=== PATIENT | male | born 1975 | race Caucasian/White ===

== ENCOUNTER 2018-02-25 21:04 | Inpatient (IN) | payer OTHER ==
[~2018-02-25] VITALS: Ht 182.9 cm; Wt 101.2 kg
[2018-02-25 21:09] VITALS: Ht 182.9 cm; Wt 101.2 kg
[2018-02-25 22:08] LABS: PLATELET COUNT 310 x10^3mcL (130-400); RED CELL DISTRIBUTION WIDTH 14.3 % (11.5-14.5)
[2018-02-25 22:14] LABS: CALCIUM 8.4 mg/dL (8.5-10.1); CARBON DIOXIDE 23.3 mmol/L (21-32); CHLORIDE SERUM 101 mmol/L (98-107); CREATININE SERUM 0.8 mg/dL (0.7-1.3); GFR1 > 60 mL/min; GLUCOSE SERUM 101 mg/dL (74-106); POTASSIUM SERUM 3.8 mmol/L (3.5-5.1); SODIUM SERUM 140 mmol/L (136-145)
[2018-02-25 22:19] LABS: ALBUMIN 4.1 g/dL (3.4-5.0); ALKALINE PHOSPHATASE 69 U/L (46-116); ALT/SGPT 25 U/L (16-63); AST/SGOT 20 U/L (15-37); BILIRUBIN TOTAL 0.3 mg/dL (0.20-1.00)
[2018-02-25 22:20] LABS: TOTAL PROTEIN, SERUM 8.5 g/dL (6.4-8.2)
[2018-02-25 23:11] LABS: AMPHETAMINE QUAL UR NONE DETECTED (See below)
[2018-02-26 15:05] LABS: MAGNESIUM 2.1 mg/dL (1.8-2.4); PHOSPHOROUS 2.8 mg/dL (2.5-4.9)
[2018-02-26 15:13] LABS: T3 TOTAL 0.92 ng/mL
[2018-02-26 15:31] LABS: FREE T4 0.85 ng/dL (0.76-1.46); FREE THYROXINE INDEX 2.3 ug/dL (1.4-4.5); T4(THYROXINE) 6.7 ug/dL (4.7-13.3)
[2018-02-26 16:07] VITALS: BP 187/121
[2018-02-26 18:54] VITALS: BP 172/112
[2018-02-26 20:51] VITALS: BP 152/94
[2018-02-27 06:04] VITALS: BP 148/94
[2018-02-27 07:20] LABS: BASOPHIL % 0.7 % (0-2); PLATELET COUNT 240 x10^3mcL (130-400); RED CELL DISTRIBUTION WIDTH 14.1 % (11.5-14.5)
[2018-02-27 07:35] LABS: CALCIUM 8.4 mg/dL (8.5-10.1); CARBON DIOXIDE 27.8 mmol/L (21-32); CHLORIDE SERUM 104 mmol/L (98-107); CREATININE SERUM 0.7 mg/dL (0.7-1.3); GFR1 > 60 mL/min; GLUCOSE SERUM 85 mg/dL (74-106); MAGNESIUM 2.1 mg/dL (1.8-2.4); PHOSPHOROUS 3.4 mg/dL (2.5-4.9); POTASSIUM SERUM 3.3 mmol/L (3.5-5.1); SODIUM SERUM 141 mmol/L (136-145)
[2018-02-27 09:38] VITALS: BP 148/93
[2018-02-27 13:49] VITALS: BP 157/94
[2018-02-27 21:23] VITALS: BP 123/81
[2018-02-28 05:10] VITALS: BP 126/86
[2018-02-28 07:42] LABS: BASOPHIL % 1.4 % (0-2); PLATELET COUNT 234 x10^3mcL (130-400); RED CELL DISTRIBUTION WIDTH 14.1 % (11.5-14.5)
[2018-02-28 07:52] LABS: CALCIUM 8.8 mg/dL (8.5-10.1); CARBON DIOXIDE 27.7 mmol/L (21-32); CHLORIDE SERUM 102 mmol/L (98-107); CREATININE SERUM 0.6 mg/dL (0.7-1.3); GFR1 > 60 mL/min; GLUCOSE SERUM 85 mg/dL (74-106); MAGNESIUM 2.1 mg/dL (1.8-2.4); PHOSPHOROUS 3.9 mg/dL (2.5-4.9); POTASSIUM SERUM 3.5 mmol/L (3.5-5.1); SODIUM SERUM 138 mmol/L (136-145)
[2018-02-28 09:13] VITALS: BP 130/86
[2018-02-28 13:48] VITALS: BP 128/89
[2018-02-28 17:22] VITALS: BP 126/84
[2018-02-28 20:51] VITALS: BP 135/91
[2018-03-01 05:27] VITALS: BP 106/77
[2018-03-01 05:56] LABS: BASOPHIL % 0.5 % (0-2); PLATELET COUNT 241 x10^3mcL (130-400); RED CELL DISTRIBUTION WIDTH 14.2 % (11.5-14.5)
[2018-03-01 06:27] LABS: CALCIUM 8.9 mg/dL (8.5-10.1); CARBON DIOXIDE 24.5 mmol/L (21-32); CHLORIDE SERUM 101 mmol/L (98-107); CREATININE SERUM 0.8 mg/dL (0.7-1.3); GFR1 > 60 mL/min; GLUCOSE SERUM 93 mg/dL (74-106); MAGNESIUM 2.2 mg/dL (1.8-2.4); POTASSIUM SERUM 3.6 mmol/L (3.5-5.1); SODIUM SERUM 137 mmol/L (136-145)
[2018-03-01 13:01] VITALS: BP 105/68
[2018-03-01 17:19] VITALS: BP 117/81
[2018-03-01 20:55] VITALS: BP 123/88
[2018-03-02 05:41] VITALS: BP 113/73
[2018-03-02 08:26] VITALS: BP 106/74
[2018-03-02 12:14] VITALS: BP 131/82
[2018-03-02 17:00] VITALS: BP 121/84
[2018-03-02 20:42] VITALS: BP 117/74
[2018-03-03 05:33] VITALS: BP 111/79
[2018-03-03 06:30] LABS: BASOPHIL % 1.3 % (0-2); PLATELET COUNT 241 x10^3mcL (130-400); RED CELL DISTRIBUTION WIDTH 13.8 % (11.5-14.5)
[2018-03-03 06:44] LABS: CALCIUM 8.6 mg/dL (8.5-10.1); CARBON DIOXIDE 30.3 mmol/L (21-32); CHLORIDE SERUM 105 mmol/L (98-107); CREATININE SERUM 0.8 mg/dL (0.7-1.3); GFR1 > 60 mL/min; GLUCOSE SERUM 85 mg/dL (74-106); MAGNESIUM 2.4 mg/dL (1.8-2.4); SODIUM SERUM 142 mmol/L (136-145)
[2018-03-03 08:55] VITALS: BP 110/70
[2018-03-03 13:44] VITALS: BP 110/70
[2018-03-03] MEDS ORDERED: HYDROXYZINE10 M1 PO (14:06)
== END 2018-03-03 14:33 | disposition home or self-care (01) | DRG 896 ==
LOC: ED 21:04 → DU 02-26 14:26
PROVIDERS: Emergency Medicine; Family Medicine; General Practice; Internal Medicine
DX: F10.221 Alcohol dependence with intoxication delirium (principal); G92 Toxic encephalopathy; T51.0X1A Toxic effect of ethanol, accidental (unintentional), initial encounter; E87.6 Hypokalemia; E83.51 Hypocalcemia; F10.232 Alcohol dependence with withdrawal with perceptual disturbance; F43.12 Post-traumatic stress disorder, chronic; E78.5 Hyperlipidemia, unspecified; Y90.8 Blood alcohol level of 240 mg/100 ml or more; Y92.9 Unspecified place or not applicable
CPT/HCPCS: 84439; G0480; J1885; J2060; J2270; J2405; Q0092

== ENCOUNTER 2018-04-14 01:38 | Emergency (ER) | payer MEDICAID ==
[~2018-04-14] VITALS: Ht 182.9 cm; Wt 101.2 kg
[~2018-04-14 01:38] MED LIST: HYDROXYZINE10 M1 PO
[2018-04-14 01:57] VITALS: Ht 182.9 cm; Wt 101.2 kg
[2018-04-14 03:36] LABS: BASOPHIL % 0.5 % (0-2); PLATELET COUNT 260 x10^3mcL (130-400); RED CELL DISTRIBUTION WIDTH 15.1 % (11.5-14.5)
[2018-04-14 03:59] LABS: CALCIUM 8.8 mg/dL (8.5-10.1); CARBON DIOXIDE 23.8 mmol/L (21-32); CHLORIDE SERUM 99 mmol/L (98-107); CREATININE SERUM 0.9 mg/dL (0.7-1.3); GFR1 > 60 mL/min; GLUCOSE SERUM 96 mg/dL (74-106); POTASSIUM SERUM 3.4 mmol/L (3.5-5.1); SODIUM SERUM 135 mmol/L (136-145)
[2018-04-14 04:04] LABS: ALBUMIN 3.6 g/dL (3.4-5.0); ALKALINE PHOSPHATASE 75 U/L (46-116); ALT/SGPT 148 U/L (16-63); AST/SGOT 105 U/L (15-37); BILIRUBIN TOTAL 1.23 mg/dL (0.20-1.00); LIPASE 142 IU/L (73-393); TOTAL PROTEIN, SERUM 7.5 g/dL (6.4-8.2)
[2018-04-14 05:31] VITALS: BP 105/55
== END 2018-04-14 05:19 | disposition home or self-care (01) ==
LOC: ED 01:38
PROVIDERS: Emergency Medicine
DX: K57.92 Diverticulitis of intestine, part unspecified, without perforation or abscess without bleeding (principal); F10.239 Alcohol dependence with withdrawal, unspecified
CPT/HCPCS: J2270; J2405; J2543

== ENCOUNTER 2018-11-07 23:00 | Inpatient (IN) | payer MEDICAID ==
[~2018-11-07] VITALS: Ht 182.9 cm; Wt 89.8 kg
--- NOTE | 2018-11-07 23:26 | NUR ---
PT BIB [facility] AND AMBULATED TO BED. PT AAOX4 WITH C/O LLQ ABD PAIN WITH PAINFUL/BURNING URINATION AND NAUSEA 'FOR AWHILE NOW'. PT ALSO STATED HE HAS A LOT OF EMOTIONAL PAIN DUE TO A DISAGREEMENT WITH HIS . PT STATES 'I TOOK ALL OF THE PILLS THEY GAVE ME'. PT WAS FOUND BY PD IN A HOTEL ROOM WITH A BELT AROUND HIS NECK. PT WAS PLACED ON A 5150 HOLD BY PD FOR SI. PT HAS A HX OF SI AND PTSD. PT IS CALM AND COOPERATIVE AT THIS TIME. PT PLACED IN ROOM CLOSE TO NURSING STATION WITH SAFETY MEASURES IN PLACE.
[2018-11-07 23:46] LABS: PLATELET COUNT 301 x10^3mcL (130-400); RED CELL DISTRIBUTION WIDTH 12.7 % (11.5-14.5)
[2018-11-07 23:53] LABS: BASOPHIL % 2.2 % (0-2)
[2018-11-07 23:57] LABS: CALCIUM 8.4 mg/dL (8.5-10.1); CARBON DIOXIDE 26.4 mmol/L (21-32); CHLORIDE SERUM 108 mmol/L (98-107); CREATININE SERUM 0.7 mg/dL (0.7-1.3); GFR1 > 60 mL/min; GLUCOSE SERUM 96 mg/dL (74-106); POTASSIUM SERUM 4.1 mmol/L (3.5-5.1); SODIUM SERUM 146 mmol/L (136-145)
[2018-11-07 23:57] LABS: AMPHETAMINE QUAL UR NONE DETECTED (See below)
--- NOTE | 2018-11-08 00:10 | NUR ---
SPOKE WITH PAT FROM [facility] [employer] WHO STATED TO HAVE PT ON A SHORT GOODS DRIER WITH EKGS DONE Q 4 HRS, RUN TYLENOL/ASA/CMP LEVELS, PLACE PT ON SZ PRECAUTIONS, AND IF Q-T INTERVAL IS GREATER THAN [address] VELASQUEZ INFORMED OF [employer] INSTRUCTIONS.
[2018-11-08 00:11] LABS: ALBUMIN 3.6 g/dL (3.4-5.0); ALKALINE PHOSPHATASE 48 U/L (46-116); ALT/SGPT 17 U/L (16-63); AST/SGOT 11 U/L (15-37); BILIRUBIN TOTAL 0.36 mg/dL (0.20-1.00); T4(THYROXINE) 9.1 ug/dL (4.7-13.3); TOTAL PROTEIN, SERUM 7.5 g/dL (6.4-8.2)
--- NOTE | 2018-11-08 01:35 | NUR ---
PT RESTING WITH HIS EYES CLOSED AND BREATHS EVEN AND UNLABORED WITH NO SIGNS OF DISTRESS AT THIS TIME.
--- NOTE | 2018-11-08 02:42 | NUR ---
PT AMBULATED TO RESTROOM WITH STEADY GAIT AND ACCOMPANIED BY MATIAS MALDONADO
--- NOTE | 2018-11-08 04:07 | NUR ---
PT C/O NAUSEA. MADE AWARE. NEW ORDERS SEE EMAR
--- NOTE | 2018-11-08 04:20 | NUR ---
MD VELASQUEZ MADE AWARE PT STATES THAT HE FEELS SHAKEY "FROM WITHDRAWAL" WHEN ASKED FROM WHAT HE STATES "ALCOHOL". PT STATES HE ALSO HAS PAIN FROM HIS DIVERTICULITIS IN THE LU[place]. PER MD VELASQUEZ START IV AND WILL ORDER MEDICATION FOR PT SEE EMAR
--- NOTE | 2018-11-08 04:52 | NUR ---
MALACHI LUGO AT BEDSIDE FOR IV INSERTION ATTEMPT
--- NOTE | 2018-11-08 04:53 | NUR ---
PT BL HANDS APPEAR TO BE SWOLLENA ND THE PALMS APPEAR TO BE RED. PT STATES THEY ARE NOT USUALLY LIKE THIS. PT DENIES PAIN IN HANDS AT THIS TIME. PT DOES NOT HAVE A TEMPERATURE. HAND SWELLING IS NON PITTING
--- NOTE | 2018-11-08 05:31 | NUR ---
LAB AT BEDSIDE FOR BLOOD DRAW
--- NOTE | 2018-11-08 07:15 | NUR ---
PROVIDED WITH BREAKFAST TRAY
--- NOTE | 2018-11-08 07:26 | NUR ---
REPORT GIVEN TO ANDREINA LOVE RN
--- NOTE | 2018-11-08 07:27 | NUR ---
RECIEVED REPORT FROM TERRANCE; PT STS "I HAVE THE SHAKES REAL BAD"; AWARE
--- NOTE | 2018-11-08 09:55 | NUR ---
PT EDUCATED ON MEDICATION PER EMAR, VERBALIZED UNDERSTANDING. MEDICATED AND TOLERATED WELL. PT ON AGATHA IN POSITION OF COMFORT WITH CURTAIN OPEN AND IN VIEW OF NURSES STATION
--- NOTE | 2018-11-08 12:00 | NUR ---
PROVIDED WITH LUNCH TRAY
--- NOTE | 2018-11-08 12:37 | NUR ---
BEDDING CHANGED FOR PT COMFORT; PROVIDED WITH URINAL; AWARE OF CURRENT BP AND SWEATING AT THIS TIME
--- NOTE | 2018-11-08 13:17 | NUR ---
PT ASLEEP, EASILY AROUSABLE, RESP E/U, IN NO ACUTE DISTRESS.
--- NOTE | 2018-11-08 15:08 | NUR ---
[facility] is aware of your patient and have been faxing to facilities for placement once info of any facility is in agreement with transfer we will notify you. Thanks
--- NOTE | 2018-11-08 17:00 | NUR ---
PT STS "IM ANXIOUS AND SHAKING". REQUESTING ATIVAN. PT TREMBLING AT BEDSIDE. DR HAAS MADE AWARE.
[2018-11-08 18:00] LABS: CHOLESTEROL/HDL RATIO 2.2; MAGNESIUM 2.4 mg/dL (1.8-2.4); PHOSPHOROUS 2.5 mg/dL (2.5-4.9)
--- NOTE | 2018-11-08 18:58 | NUR ---
PT STS HE DOES NOT WANT HIS FAMILY TO KNOW HIS LOCATION OR THAT HE'S ON A 5150 HOLD.
--- NOTE | 2018-11-08 19:00 | NUR ---
REPORT GIVEN TO RN CHENCHO TO ASSUME CARE OF THE PT.
--- NOTE | 2018-11-08 19:07 | NUR ---
REPORT RECEIVED FROM HELENA RN AWAITING AN RN UPSTAIRS TO CALL REPORT AND ADMIT PT
--- NOTE | 2018-11-08 19:20 | NUR ---
ATTEMPTED TO CALL REPORT HOWEVER THEY STATE TO CALL BACK WITHIN 10 MINUTES
--- NOTE | 2018-11-08 19:50 | NUR ---
ATTEMPTING TO CALL REPORT AT THIS TIME CALLED REPORT TO EILEEN LY
--- NOTE | 2018-11-08 20:05 | NUR ---
RECEIVED PT FROM ED VIA FREDY, CAME IN DUE TO SUICIDAL IDEATION. AAOX4. C/O 6/10 HEADACHE. DENIES DIZZINESS. C/O MILD SOB, O2 SAT=97%, RA. DENIES CHEST PAIN/PRESSURE. C/O 8/10 LLQ ABDOMINAL PAIN DESCRIBED STABBING AND SHARP. C/O NAUSEA. ABDOMEN IS SOFT. VOIDS. IV SITE ON THE LEFT WRIST GAUGE 22 IS PATENT AND INTACT. PT DENIES SUICIDAL IDEATION AT THIS TIME. CALM AND COOPERATIVE TO CARE. W/ SHAKINESS NOTED ON BUE. PADDED SIDE RAILS UPX2. CALL LIGHT ON REACH. PRIMARY NURSE CHRISSY AT BEDSIDE FOR CONTINUITY OF CARE
[2018-11-08 20:09] VITALS: BP 170/103
--- NOTE | 2018-11-08 20:10 | NUR ---
PT RECEIVED FROM RESOURCE NURSE. PT A/O X4, ABLE TO MAKE NEEDS KNOWN. PT DENIES ANY CP/PRESSURE. BREATHING IS EVEN AND UNLABORED ON RA, NO RESP DISTRESS NOTED. ABD SOFT AND NONDISTENDED, ADMITS TO MILD NAUSEA, EMESIS BAG PROVIDED. VOIDS FREELY, BRP. AMBULATORY WITH STEADY GAIT. PT ADMITTED FOR SI, BUT DENIES ANY SI AT THIS TIME. SITTER AT BEDSIDE. SL TO LW, PATENT AND INTACT, SITE WNL. NO ACUTE DISTRESS NOTED. ORIENTED PT TO ROOM AND CALL LIGHT. WILL CONT TO MONITOR.
[2018-11-08 20:15] VITALS: Ht 182.9 cm; Wt 89.8 kg
--- NOTE | 2018-11-08 21:02 | NUR ---
ORDERS RECEIVED TO TRANSFER PT TO TELE. TELE #16 PLACED ON PT. PT DENIES ANY CP/PRESSURE. NO ACUTE DISTRESS NOTED. WILL CONT TO MONITOR.
--- NOTE | 2018-11-08 22:00 | NUR ---
PT C/O 09/13 H/A AND 11/13 ABD PAIN, PRN TYLENOL GIVEN ORDERED. NO ACUTE DISTRESS NOTED. CALL LIGHT WITHIN REACH. WILL CONT TO MONITOR.
--- NOTE | 2018-11-08 23:25 | NUR ---
PT'S BP-172/103 (121), HR-85. DR GONZALEZ MADE AWARE. HYDRALAZINE IVP GIVEN ORDERED. WILL RECHECK BP. PT IN NO ACUTE DISTRESS. SITTER AT BEDSIDE. CALL LIGHT WITHIN REACH. WILL CONT TO MONITOR.
[2018-11-09 00:15] VITALS: BP 143/82
--- NOTE | 2018-11-09 01:55 | NUR ---
PT C/O BUE SHAKINESS AND ANXIETY, PRN ATIVAN IVP GIVEN ORDERED. PT ALSO C/O NAUSEA, PRN ZOFRAN IVP GIVEN ORDERED. EMESIS BAG PROVIDED. NO ACUTE DISTRESS NOTED. WILL CONT TO MONITOR.
--- NOTE | 2018-11-09 04:38 | NUR ---
RECEIVED CALL FROM MARIA GUADALUPE (LOGISTICS OFFICER IN ED). PER MARIA GUADALUPE, RECEIVED CALL FROM [facility] AND SPOKE WITH HIWOT FOR POSSIBLE PLACEMENT; HIWOT WILL CALL BACK AT 0700 FOR ROOM NUMBER.
--- NOTE | 2018-11-09 04:40 | NUR ---
PT ACCIDENTALLY PULLED OUT IV TO LW, CATH INTACT. NEW IV INSERTED TO RH, 22g, PATENT AND INTACT, PT TOLERATED WELL. PT C/O ANXIETY AND BUE SHAKINESS, PRN ATIVAN IVP GIVEN ORDERED. NO ACUTE DISTRESS NOTED. SITTER AT BEDSIDE. CALL LIGHT WITHIN REACH. WILL CONT TO MONITOR.
--- NOTE | 2018-11-09 05:04 | NUR ---
Radha lithopone charger nurse on S.Tele made aware , per Rosanna intake at [facility] , pt chart is being reviewed again for possible admit in the AM
[2018-11-09 06:07] VITALS: BP 155/105
[2018-11-09 06:25] LABS: BASOPHIL % 1.8 % (0-2); PLATELET COUNT 262 x10^3mcL (130-400); RED CELL DISTRIBUTION WIDTH 12.5 % (11.5-14.5)
--- NOTE | 2018-11-09 06:38 | NUR ---
PT SLEPT AT INTERVALS THROUGHOUT THE EVENING. BREATHING IS EVEN AND UNLABORED, NO RESP DISTRESS NOTED. PT DENIES HAVING ANY PAIN AT THIS TIME. IVF INFUSING WELL TO , SITE WNL. PT DENIES HAVING ANY SUICIDAL IDEATIONS. NO ACUTE CHANGES ENCOUNTERED DURING SHIFT. ALL NEEDS MET AND ANTICIPATED. PT COMPLIANT WITH NURSING CARE. SITTER AT BEDSIDE. CALL LIGHT WITHIN REACH. WILL ENDORSE CARE TO AM NURSE.
[2018-11-09 06:52] LABS: CALCIUM 8.8 mg/dL (8.5-10.1); CARBON DIOXIDE 23.7 mmol/L (21-32); CHLORIDE SERUM 103 mmol/L (98-107); CREATININE SERUM 0.6 mg/dL (0.7-1.3); GFR1 > 60 mL/min; GLUCOSE SERUM 93 mg/dL (74-106); POTASSIUM SERUM 3.7 mmol/L (3.5-5.1); SODIUM SERUM 139 mmol/L (136-145)
--- NOTE | 2018-11-09 07:00 | NUR ---
[facility] still working on placement, will continue to f/u with facilities. Will contact with any placement updates.
--- NOTE | 2018-11-09 08:04 | NUR ---
RECEIVED PATIENT FROM MALACHI LOWE. PATIENT ASLEEP AT THIS TIME. NO S/S OF DISTRESS. SITTER IN ROOM. WILL RE-EVALUATE PATIENT FOR SI ONCE AWAKE. CALL LIGHT IN REACH AT THIS TIME.
--- NOTE | 2018-11-09 09:55 | NUR ---
PATIENT NOW AWAKE. A/OX4. WENT OVER CARE PLAN FOR TODAY. PATIENT AGREES. REQUESTED PRN ATIVAN 1 MG AND ADMINISTERED WITH MORNING MEDS. INFORMED PATIENT FOR STOOL SAMPLE, AND PATIENT VERBALIZES UNDERSTANDING.
--- NOTE | 2018-11-09 12:25 | NUR ---
Contacted the following facilities regarding placement: [facility]: s/w Kaycee, states no beds at this time. [facility]: s/w Mariza, states no beds, possible D/Cs during afternoon. [facility]: s/w Edgard, states no beds at this time. [facility]: s/w Kelsy, states no adult beds. [facility]: states no male beds [facility]: s/w Leigh, [facility] open beds, faxed for review. [facility]: s/w Tank No beds. [facility]: s/w Roxy, [facility] open beds, packet faxed. [facility]: no beds. Will continue to f/u with contracted facilities, will contact with any update.
--- NOTE | 2018-11-09 12:59 | NUR ---
PATIENT STATES THAT HE IS EXPERIENCING PAIN, 2 MG MORPHINE ORDERED AND ADMINISTERED PER DR SKELTON SAYED. INFORMED DR SKELTON SAYED THAT PRN ATIVAN GIVEN RECENTLY, DR SKELTON SAYED CLEARED TO GIVE MORPHINE AT THIS TIME. SITTER AT BEDSIDE, CALL LIGHT IN REACH. OCCULT BLOOD STOOL SAMPLE SENT TO LAB.
[2018-11-09 13:41] VITALS: BP 163/103
[2018-11-09 16:34] VITALS: BP 134/94
--- NOTE | 2018-11-09 18:11 | NUR ---
PATIENT IN BED. CONTINUES TO DENY SI OR WANTING TO HARM OTHERS. PRN ATIVAN GIVEN TO PATIENT DUE TO AGITATION AND MILD TREMORS IN BILATERAL HANDS. WILL ENDORSE TO ONCOMING NURSE. SITTER AT BEDSIDE
--- NOTE | 2018-11-09 19:45 | NUR ---
PT IS A/O X4. PT IS ON TELE 16 SR HR 91. PT HAS PALPABLE PULSES, NO EDEMA NOTED. PT HAS CLEAR LUNG SOUNS ON BA, BREATHING EVEN AND UNLABORED. PT BOWEL SOUNDS ACTIVE, ABD FLAT AND NON DISTENDED. PT LAST BM WAS 11/09. PT VOIDS REGUALRLY. PT IS AMBULATORY. PT DENIES ANY PAIN AT THIS TIME. PT IV TO CDI. PT REMAINS ON 5150. PT REMAINS WITH SITTER AT BEDSIDE. WILL CONT TO MONITOR. CALL LIGHT WITHIN REACH.
[2018-11-09 21:00] VITALS: BP 132/94
--- NOTE | 2018-11-09 21:13 | NUR ---
PT WAS C/O OF ANXIOUSNESS. GAVE ATIVAN X1 PER MD ORDER.
--- NOTE | 2018-11-09 22:25 | NUR ---
PT C/O OF PAIN. GAVE MORPHINE X1 PER EMAR WILL CONT TO MONITOR.
--- NOTE | 2018-11-10 02:00 | NUR ---
PT IN BED ASLEEP, SEIZURE PERCAUTIONS IN PLACE, SITTER AT BEDSIDE. PT BREATHING EVEN AND UNLABORED. NO RESP DISTRESS NOTED. PT CALL LIGHT WITHIN REACH, WILL CONT TO MONITOR.
--- NOTE | 2018-11-10 03:22 | NUR ---
Notified charge nurse Radha LY , there still no vacancy at this time at all the designated facilities packets were faxed to , will continue to make calls at other facilities.
--- NOTE | 2018-11-10 03:54 | NUR ---
PT WAS FEELING ANXIOUS. GAVE ATIVAN X1 PER EMAR. CALL LIGHT WITHIN REACH. WILL CONT TO MONITOR.
[2018-11-10 05:09] VITALS: BP 135/93
--- NOTE | 2018-11-10 05:30 | NUR ---
PT C/O OF PAIN. TALKED TO DR ODEN. NO NEW ORDERS RECIEVED. DR CAMPOS WILL ENDORSE TO DAY TEAM. WILL ENDORSE TO DAY SHIFT NURSE.
--- NOTE | 2018-11-10 06:11 | NUR ---
PT SLEPT THROUGH LONG INTERVALS DURING THE NIGHT. PT IS A/O X4. PT DENIES ANY SI AT THIS TIME. PT C/O OF INTERMITTENT ABD PAIN. PT GIVEN MEDICATION PER EMAR, MORPHINE X1 PER MD ORDER. PT WAS FEELING ANXIOUS DURING THE NIGHT, GAVE ATIVAN X2. PT IS COOPERATIVE WITH NURSING CARE, SEIZURE PERCAUTIONS IN PLACE. SITTER AT BEDSIDE. PT REMAINS 5150. PT IV TO RH INFUSING WELL. PT IS ON TELE 16. DENIES ANY CHEST PAIN OR SOB AT THIS TIME. WILL CONT TO MONITOR, WILL ENDORSE CARE TO DAY SHIFT NURSE. CALL LIGHT WITHIN REACH.
[2018-11-10 06:16] LABS: BASOPHIL % 0.4 % (0-2); PLATELET COUNT 259 x10^3mcL (130-400); RED CELL DISTRIBUTION WIDTH 12.2 % (11.5-14.5)
[2018-11-10 06:44] LABS: CALCIUM 9.2 mg/dL (8.5-10.1); CARBON DIOXIDE 27.2 mmol/L (21-32); CHLORIDE SERUM 104 mmol/L (98-107); CREATININE SERUM 0.7 mg/dL (0.7-1.3); GFR1 > 60 mL/min; GLUCOSE SERUM 94 mg/dL (74-106); MAGNESIUM 2.1 mg/dL (1.8-2.4); PHOSPHOROUS 3.6 mg/dL (2.5-4.9); POTASSIUM SERUM 3.9 mmol/L (3.5-5.1); SODIUM SERUM 141 mmol/L (136-145)
--- NOTE | 2018-11-10 07:40 | NUR ---
PATIENT RESTING IN BED, NO ACUTE DISTRESS NOTED. PATIENT DENIES PAIN. SEIZURE PRECAUTIONS IN PLACE. TELE MONITOR IN PLACE. TREMORS NOTED TO BUE. PATIENT DENIES SUICIDAL IDEATIONS, AND PLAN OF SUICIDE. NS IV INFUSING TO RIGHT HAND, NO S/S OF INFILTRATION. CALL LIGHT WITHIN REACH, BED IN LOW POSITION, SITTER AT BEDSIDE FOR SAFETY PRECAUTION.
[2018-11-10 09:34] VITALS: BP 133/91
--- NOTE | 2018-11-10 12:00 | NUR ---
PATIENT RESTING IN BED, NO ACUTED DISTRESS NOTED. PATIENT ON ROOM AIR, DENIES SOB. SITTER AT BEDSIDE FOR SAFETY. CALL LIGHT WITHIN REACH, BED IN LOW POSITION. WILL CONTINUE TO MONITOR.
[2018-11-10 12:31] VITALS: BP 132/94
[2018-11-10 17:44] VITALS: BP 129/86
--- NOTE | 2018-11-10 18:00 | NUR ---
PATIENT AMUBLATED TO THE BATHROOM, NO ACUTE DISTRESS NOTED. STEADY, SLOW GAIT NOTED. PATIENT DENIES PAIN. IV TO RIGHT HAND CDI , NO S/S OF INFILTRATION. CALL LIGHT WITHIN REACH, BED IN LOW POSITION. SEIZURE PRECAUTIONS IN PLACE. SITTER AT BEDSIDE FOR SAFETY PRECAUTION.
--- NOTE | 2018-11-10 19:10 | NUR ---
PT RECEIVED FROM THE DAY SHIFT RN. PT IS ALERT AND ORIENTED X4, CALM AND COOPERATIVE WITH CARE AT THIS TIME. NO ACUTE DISTRESS NOTED. PT IS COMPLAINING OF RLQ ABDOMINAL PAIN. PT STATES THE PAIN IS A 7/10 AT THIS TIME, PT STATES IT IS A CONSTANT STABBING PAIN. PT STATED MINOR RELIEF WITH PRN PAIN MEDICATION, WILL CONTINUE TO MONITOR PATIENTS PAIN. PT DENIES ANY SUICIDAL IDEATION/PLAN AT THIS TIME. SAFETY AND COMFORT MEASURES MAINTAINED, BED IN LOWEST POSITION, CALL LIGHT WITHIN REACH. WILL CONTINUE TO MONITOR AT THIS TIME.
[2018-11-10 21:13] VITALS: BP 137/85
--- NOTE | 2018-11-11 00:18 | NUR ---
PT IS IN BED WATCHING TV AT THIS TIME. PT STATES THAT HE IS FEELING A LITTLE ANXIOUS BUT THE LIBRIUM IS HELPING. PT HAS BEEN ALERT AND ORIENTED X4, PT STATES HE IS RESTLESS GAVE PRN AMBIEN. SITTER IS AT THE BEDSIDE, SAFETY AND COMFORT MEASURES MAINTAINED, BED IN LOWEST POSITION, CALL LIGHT WITHIN REACH.
[2018-11-11 05:00] VITALS: BP 153/94
--- NOTE | 2018-11-11 05:01 | NUR ---
PT HAS RESTED IN INTERMITTENT INTERVALS THROUGHOUT THE SHIFT. PT HAS BEEN CALM AND COOPERATIVE WITH CARE, NO ACUTE DISTRES NOTED, SITTER IS AT THE BEDSIDE, IV SITE IS PATENT AND INTACT, SAFETY AND COMFORT MEASURES MAINTAINED, BED IN LOWEST POSITION, CALL LIGHT WITHIN REACH, WILL ENDORSE CONTINUITY OF CARE TO THE ONCOMING RN.
[2018-11-11 06:41] LABS: BASOPHIL % 0.6 % (0-2); PLATELET COUNT 245 x10^3mcL (130-400); RED CELL DISTRIBUTION WIDTH 12.4 % (11.5-14.5)
[2018-11-11 06:43] LABS: CALCIUM 9.2 mg/dL (8.5-10.1); CARBON DIOXIDE 25.4 mmol/L (21-32); CHLORIDE SERUM 102 mmol/L (98-107); CREATININE SERUM 0.7 mg/dL (0.7-1.3); GFR1 > 60 mL/min; GLUCOSE SERUM 115 mg/dL (74-106); POTASSIUM SERUM 3.6 mmol/L (3.5-5.1); SODIUM SERUM 140 mmol/L (136-145)
--- NOTE | 2018-11-11 08:00 | NUR ---
PT RESTING IN BED. STATED NAUSEA AND ADMINISTERED ZOFRAN IV ORDERED. ASSESSED AND DOCUMENTED. DENIES PAIN THIS TIME. SAFTEY PRECAUTIONS ARE IN PLACE. WILL MONITOR.
[2018-11-11 08:03] VITALS: BP 145/94
--- NOTE | 2018-11-11 08:30 | NUR ---
PT IS SLEEPING THIS TIME. DENIES NAUSEA.
--- NOTE | 2018-11-11 09:50 | NUR ---
[facility] aware patient still in need of psych placment but pending medical clearance. We will conitnue to monitor notes for updates. Call Center can be contacted at [phone]
--- NOTE | 2018-11-11 15:15 | NUR ---
PT C/O ANXIETY AT 1444 AND ATIVAN 1MG IV GIVEN. PT IS SLEEPING 20MIN AFTER ATIVAN. STABLE. SITTER AT BEDSIDE.
[2018-11-11 15:41] LABS: microscopic required? YES; urine erythrocyte NEGATIVE (NEGATIVE)
[2018-11-11 17:41] VITALS: BP 131/74
--- NOTE | 2018-11-11 18:59 | NUR ---
REGIONAL BRANCH MANAGER CALLED AND INFORMED PT RUN 9 BEAT V-TACH AND CHANGED BACK TO NSR. CHECKED PT. PT RESTING IN BED. STABLE AND COMFORTABLE. DENIES CHEST PAIN. V/S CHECKED. VN=536/79, HR 79 AND SPO2 98% IN RA AND RR IS 16, TEMP=98.6. DENIES ANY PAIN. NO SOB. SITTER AT BEDSIDE.
--- NOTE | 2018-11-11 19:15 | NUR ---
PT RESTING IN BED. GAVE REPORT TO NIGHT KARLA NURSE.
--- NOTE | 2018-11-11 19:30 | NUR ---
PT RECIEVED FROM DAY NURSE. PT RESTING IN BED COMFORTABLY. STATES 6/10 LLQ PAIN. AO X4 CALM AND COOPERATIVE AT THIS TIME. TELE 16, NSR. DENIES CP, N/V,DIZZINESS, AND PALPATATIONS. BREATHING E/U ON RA. ABD SOFT AND ROUND, LLQ PAIN TO PALPATION. L THUMB IAIN, CDI AND INFUSING. BED AT LOWEST POSTION. CALL LIGHT WITHIN REACH. WILL CONTINUE TO MONITOR.
--- NOTE | 2018-11-11 21:30 | NUR ---
PT COMPLAINING OF AGITATION. MEDICATED PT WITH PRN ATIVAN. WILL MONITOR.
[2018-11-11 21:39] VITALS: BP 120/83
--- NOTE | 2018-11-11 22:30 | NUR ---
PT COMPLAINING OF INSOMNIA, MEDICATED PT WITH PRN AMBIAN. WILL MONITOR.
--- NOTE | 2018-11-12 | NUR ---
PT RESTING IN BED COMFORTABLY. NO S/S OF PAIN OR DISTRESS AT THIS TIME. BREATHING E/U ON RA. NO SIGNS OF ACUTE DISTRESS NOTED. BED AT LOWEST POSITION. CALL LIGHT WITHIN REACH. WILL CONTINUE TO MONITOR.
--- NOTE | 2018-11-12 03:28 | NUR ---
PT STATED FEELING AGITATED. MEDICATED WITH PRN ATIVAN. WILL MONITOR.
[2018-11-12 05:28] VITALS: BP 128/77
[2018-11-12 06:21] LABS: BASOPHIL % 0.3 % (0-2); PLATELET COUNT 247 x10^3mcL (130-400); RED CELL DISTRIBUTION WIDTH 12.8 % (11.5-14.5)
--- NOTE | 2018-11-12 06:49 | NUR ---
PT RESTING IN BED COMFORTABLY. NO S/S OF PAIN OR DISTRESS AT THIS TIME. BREATHING E/U ON RA. ALL QUESTIONS AND CONCERNS ADDRESSED. WILL ENDORSE TO DAY NURSE.
[2018-11-12 07:14] LABS: CHLORIDE SERUM 106 mmol/L (98-107); CREATININE SERUM 0.7 mg/dL (0.7-1.3); GFR1 > 60 mL/min; GLUCOSE SERUM 74 mg/dL (74-106); POTASSIUM SERUM 3.5 mmol/L (3.5-5.1); SODIUM SERUM 143 mmol/L (136-145)
--- NOTE | 2018-11-12 07:38 | NUR ---
HANDOFF REPORT RECEIVED. PATIENT AWAKE. " IM DOING BETTER" DENIES ANY PAIN OR DISCOMFORT. SITTER AT BEDSIDE. INSTRUCTED TO CALL RN FOR ANY NEED. BED LOW AND LOCKED. CALL DANIEL WITHIN REACH.
--- NOTE | 2018-11-12 08:24 | NUR ---
Report received from restaurant shift leader. Will continue to look for placement.
[2018-11-12 09:00] VITALS: BP 116/80
--- NOTE | 2018-11-12 10:42 | NUR ---
Spoke with nurse for patient, patient is still not medically clear due to his medical issues of diverticulitis and is scheduled to see a specialist today 11/12. Also asked about if patient will be re evaled for a 5250. If physician feels he should still be on a hold Bibi will alert her staff to fax the updated hold.
--- NOTE | 2018-11-12 13:03 | NUR ---
SEEN AND ASSESSED BY MD MANDEL.
[2018-11-12 13:11] VITALS: BP 129/88
--- NOTE | 2018-11-12 14:05 | NUR ---
TYLENOL 650 MG GIVEN FOR 710 LLQ PAIN.
[2018-11-12 17:21] VITALS: BP 120/76
--- NOTE | 2018-11-12 17:34 | NUR ---
TAKING A NAP. STATED" DIDNT SLEEP WELL LAST NIGHT".
--- NOTE | 2018-11-12 19:53 | NUR ---
PT CURRENTLY RESTING IN BED, NO ACUTE DISTRESS. A/O X4. SEIZURE PRECAUTIONS IN PLACE. TELE #16 SHOWING SINUS TACHYCARDIA, DENIES CHEST PAIN. PULSES PALPABLE IN ALL EXTREMITIES, NO EDEMA NOTED. LUNG SOUNDS CTA BILATERALLY, DENIES SOB. BOWEL SOUNDS ACTIVE, LAST BM 11/12/18, PT REPORTS LOOSE STOOLS AND ABD PAIN 10/13. VOIDING WELL. AMBULATORY. SKIN INTACT. IV PATENT AND INTACT. BED IN LOWEST POSITION, SIDE RAILS UP X2, CALL LIGHT WITHIN REACH. WILL CONTINUE TO MONITOR.
[2018-11-12 22:06] VITALS: BP 122/79
--- NOTE | 2018-11-12 22:49 | NUR ---
Patient is still not medical cleared. 5150 has 11/10/18 @ 23:10. Once patient is medically cleared, patient would need a re evaluation to see if he still meets 5150 criteria.
--- NOTE | 2018-11-13 01:28 | NUR ---
PT CURRENTLY RESTING IN BED, NO ACUTE DISTRESS. WILL CONTINUE TO MONITOR.
[2018-11-13 05:53] VITALS: BP 120/79
--- NOTE | 2018-11-13 06:09 | NUR ---
PT SLEPT PERIODICALLY THROUGHOUT NIGHT, NO ACUTE DISTRESS. ALL NEEDS MET AND ATTENDED TO. NO SIGNIFICANT CHANGE. IV PATENT AND INTACT. MEDICATED PAIN PER EMAR. BED IN LOWEST POSITION, SIDE RAILS UP X2, CALL LIGHT WITHIN REACH. WILL ENDORSE CARE TO ONCOMING NURSE.
[2018-11-13 06:44] LABS: BASOPHIL % 0.2 % (0-2); PLATELET COUNT 249 x10^3mcL (130-400); RED CELL DISTRIBUTION WIDTH 12.8 % (11.5-14.5)
[2018-11-13 07:06] LABS: CARBON DIOXIDE 27.4 mmol/L (21-32); CHLORIDE SERUM 105 mmol/L (98-107); CREATININE SERUM 0.8 mg/dL (0.7-1.3); GFR1 > 60 mL/min; GLUCOSE SERUM 76 mg/dL (74-106); POTASSIUM SERUM 3.5 mmol/L (3.5-5.1); SODIUM SERUM 143 mmol/L (136-145)
--- NOTE | 2018-11-13 07:14 | NUR ---
HANDOFF REPORT RECEIVED. PATIENT AWAKE AND STATED " I SLEPT A LITTLE BIT... I NEED ZOFRAN "
--- NOTE | 2018-11-13 08:09 | NUR ---
ZOFRAN AND ATIVAN GIVEN FOR NAUSEA AND ANXIETY.
[2018-11-13 08:24] VITALS: BP 134/85
--- NOTE | 2018-11-13 09:32 | NUR ---
STATES RELIEF AFTER ZOFRAN AND ATIVAN.
--- NOTE | 2018-11-13 12:07 | NUR ---
SEEN BY MD NEAL AND UPDATED OF PLAN OF CARE.
[2018-11-13 12:17] VITALS: BP 125/83
--- NOTE | 2018-11-13 15:00 | NUR ---
RESTING IN BED. NOT IN ANY DISTRESS.
[2018-11-13 16:35] VITALS: BP 113/72
--- NOTE | 2018-11-13 18:18 | NUR ---
ZOFRAN AND ATIVAN GIVEN FOR NAUSEA AND ANXIETY. RESTING AT THIS TIME.
[2018-11-13 20:00] VITALS: BP 118/76
--- NOTE | 2018-11-13 20:00 | NUR ---
RECEIVED PT ASLEEP BUT EASILY AROUSABLE.DENIES SUICIDAL IDEATION OR HALLUCINATION AT THIS TIME.ON 1:1 SITTER.ON 5150 HOLD.ENCOURAGED TO VERBALIZED FEELINGS/THOUGHTS.APPEARS CALM AND COOPERATIVE.SNACKS GIVEN AT THIS TIME REQUESTED.WILL CONTINUE TO MONITOR.
[2018-11-13 20:05] VITALS: BP 118/76
--- NOTE | 2018-11-14 04:39 | NUR ---
PT SLEPT WITH INTERVALS.ON 1:1 SITTER.NO VERBALIZATION OF SUICIDAL IDEATION.MEDICATED WITH ATIVAN 1 MG IVP X3 FOR ANXIETY/ALCOHOL WITHDRAWAL SYMPTOMS.ON LIBRIUM RTC.NO ASE NOTED FROM ZOSYN IV ATB.CONSTANTLY ENCOURAGED TO VERBALIZED HIS FEELINGS/THOUGHTS.ALL NEEDS MET.WILL CONTINUE TO MONITOR.
[2018-11-14 05:53] VITALS: BP 111/70
--- NOTE | 2018-11-14 07:55 | NUR ---
RECEIVED REPORT FROM NIGHT NURSE, PATIENT AWAKE SITTING UP IN BED A/OX4 ON ROOM AIR, DENIES COMPLAINTS. PATIENT REPORTED HE IS FEELING SAD BUT HOPEFULL FOR HIS STAY AT HOSPITAL. UNDERSTANDING OF HIS CONDITION USING JOKES COPING MECHANISM. TELE [address] NSR[address] DENIES PAIN AT THIS TIME. SITTING IN ROOM, CALL LIGHT WITHINR EACH AND BED IN LOWEST POSITION. WILL CONTINUE TO MONITOR
[2018-11-14 08:49] VITALS: BP 109/67
--- NOTE | 2018-11-14 08:53 | NUR ---
ADMINISTERED MEDICATION PER JUN. PATIENT REFUSED LACTOLOSE DUE TO LOOSE STOOLS LAST NIGHT. SPOKE WITH ALY ABOUT CARE PLAN. PATIENT DENIES SUICIDAL IDIATION AT THIS TIME. IN GOOD SPIRITS BUT STILL REPORTING THAT HE FEELS SAD, ALMOST DEPRESSED. BUT IS HOPEFULL FOR HIS CARE
--- NOTE | 2018-11-14 09:13 | NUR ---
PATIENT REQUESTING ATIVAN FOR ANXIETY. IV FLUSHING WELL, PATIENT DENIES PAIN. CALL LIGHT WITHINR EACHM SITTER IN ROOM. WILL CONTINUE TO MONITOR
--- NOTE | 2018-11-14 13:00 | NUR ---
PATIENT IV NOT FLUSHING WELL, SIGNS OF INFILTRATION. IV REMOVED, CATH IN TACT. SITE TENDER TO TOUCH WITH SMALL AMOUNT OF SWELLING. ALL IV ANTIBIOTICS ARE D/C'D. PER DORIE [employer] FLATBED DRIVER OKAY TO NOT HAVE IV ACCESS. NEW ORDER FOR PO ATIVAN PRN FOR ANXIETY.
[2018-11-14 13:03] VITALS: BP 119/73
--- NOTE | 2018-11-14 13:27 | NUR ---
PATIENT RESTING LEFT SIDE LAYING WHEN ENTERED ROOM. ADMINISTERED LIBRIUM PO PER MAR. INFORMED PATIENT OF CHANGE TO IV MEDICATIONS AND NO MORE NEED FOR IV ACCESS. PATIENT STATED HE WAS FEELING RESTLESS. INFORMED PATIENT TTHAT I WOULD NOT ADMINSITER ATIVAN SO CLOSE TO LIBRIUM. CALL LIGHT WITHIN REACH, SITTER PRESENT IN ROOM
--- NOTE | 2018-11-14 14:05 | NUR ---
Initial Nutrition Assessment Dx: SI, Diverticulitis PMHx: Diverticulitis, PTSD PSHx: None Labs: (11/13) All nutrition related labs WNL Meds: Ambien, Ativan, Cephulac, Colace, Desyril, Folic acid, Librium, Hydralazine, Metamucil, Theragran, Tylenol, Vit B1, Zofran, Zosyn Diet: Regular PO Intake: (11/13) B/L/D: 25% (11/12; CLD) B: 100% L: 40% Ht: 72" (183 cm) Wt: 197# (89.4 kg) BMI: 26.8 (Overweight) IBW: 178# %IBW: 110% UBW: 220-230# Age: 43 y/o male Food Allergies: NKFA Skin: Intact Trevor: 21 Edema: None GI: Last BM x 1 (11/13) Per H&P, pt. admitted for SI, but also noted with c/o LLQ pain associated with N/V/D prior to admission. Per provider progress notes, noted with continued abdominal pain and decreased appetite. CT of the abdominal/pelvic region conducted on 11/09 with findings of sigmoid diverticulitis and gallstones in the gallbladder per provider notes. Pt. endorses abdominal pain without N/V at this time. Updated FP per pt. request. States that certain foods such as breads and coffee causes diverticulitis flare ups. Reports that he has lost approximately 20# since February 2018 d/t to frequent flare ups and decreased appetite. Problem with: No c/o N/V/C +loose stools Problems with: Chewing: N Swallowing: N Current appetite: Poor to fair Recent wt change: -20# since last February 2018 %wt change: 9% x 9 months Vitamin/Supplement use: MVI w/minerals Special diet at home: Regular Physical activity: Ambulatory at baseline, but does not participate in physical activity Education: Notified pt. of dietary restrictions related to diverticulitis; declined further diet education during visit as well as NCM handouts. Will re-attempt diet education on next follow up visit. Estimated Nutritional Needs Based on actual body weight 89.4 kg: Energy: 5284-7985 kcal/d (23-25 kcal/kg- adult maintenance) Protein: 72-89 g/d (0.8-1.0 g/kg)-maintenance and preservation of lean body mass Fluid: 1417-2725 ml/d (1 ml/kcal-fluid balance) or per doctor Nutrition Diagnosis 1. Inadequate PO intake r/t poor appetite 2/2 abdominal pain AEB documented PO intake meeting <75% estimated needs x 2 days. 2. Altered GI tract function r/t abdominal pain and acute medical condition AEB pt. reports of loose BM since admission, poor appetite with intake meeting <75% estimated needs, and subjective weight loss -20# x 9 months. Intervention 1. Continue regular diet as ordered and as tolerated. Add Ensure Enlive BID for supplementation to add an additional 700 kcal and 40 g protein. Update food preferences as requested by patient. Monitor/Evaluate Goal: PO intake at least 75% of estimated needs Monitor: PO intake, Labs, GI function, diet tolerance F/U in 3-5 days as moderate risk (11/17-11/19)
--- NOTE | 2018-11-14 14:10 | NUR ---
Intervention 1. Continue regular diet as ordered and as tolerated. Add Ensure Enlive BID for supplementation to add an additional 700 kcal and 40 g protein. Update food preferences as requested by patient.
--- NOTE | 2018-11-14 16:23 | NUR ---
PATIENT SEEN RESTING AT THIS TIME. BREATHING REGULAR NO DISTRESS NOTED. SITTER IN ROOM, WILL CONTINUE TO MONITOR
--- NOTE | 2018-11-14 18:09 | NUR ---
PATIENT RESTING AT THIS TIME STATING THAT HE DID NOT GET MUCH SLEEP LAST NIGHT EVEN WITH MEDICATION. PAITENT HAD NO COMPLAINTS AT THIS TIME. AD LIGHT WITHIN REACH, SITTER IN ROOM
--- NOTE | 2018-11-14 19:45 | NUR ---
RECEIVED PT ASLEEP AT THIS TIME BUT AROUSABLE.DENIES ANY PAIN OR DISCOMFORT.ENCOURAGED TO VERBALIZED FEELINGS AND THOUGHTS.1:1 SITTER AT BEDSIDE.WILL CONTINUE TO MONITOR.
[2018-11-14 19:52] VITALS: BP 121/76
--- NOTE | 2018-11-14 21:19 | NUR ---
ABLE TO INSERT A LINE TO [facility] WITH GOOD BLOOD RETURN.DUE MEDS ADMINISTERED.NAUSEATED,ZOFRAN IVP GIVEN.REQUESTING FOR STRONGER PAIN MEDS THAN TYLENOL.DR. CHOE MADE AWARE BUT NO MEDS ORDERED AT THIS TIME.WILL CONTINUE TO MONITOR.
--- NOTE | 2018-11-14 23:33 | NUR ---
S/W Shon (RN for patient). Still not medically cleared. Stated to Shon that onced patient is cleared and is still needing psych placement to let call center know
--- NOTE | 2018-11-14 23:57 | NUR ---
PT VERBALIZES HE IS VERY ANXIOUS AT THIS TIME,UNABLE TO SLEEP AND WORRYING ABOUT HIS POSSIBLE DISCHARGE IN THE MORNING.PO ATIVAN NOT DUE TIL 0300.DR. ODEN MADE AWARE WITH ORDER GIVEN FOR ONE TIME ORDER OF ATIVAN 2 MG IVP.WILL CARRY OUT.PT MADE AWARE AND AGREEABLE.
[2018-11-15 04:39] VITALS: BP 105/65
--- NOTE | 2018-11-15 04:40 | NUR ---
PT SLEPT WITH INTERVALS.ON 1:1 SITTER.DENIES SUICIDAL IDEAS AT THIS TIME.CONSTANTLY ENCOURAGED TO VERBALIZED /FEELINGS ANF THOUGHTS.INTERACTING WITH STAFF.ALL NEEDS MET.WILL CONTINUE TO MONITOR.
--- NOTE | 2018-11-15 08:00 | NUR ---
SHIFT ASSESSMENT DONE. PATIENT ALERT/ORIETNED X4. CLEAR SPEECH. ADMIT FOR SUICIDAL IDEATION, ON 5150 HOLD. TELE#16; SR; HR = 73; NO RESP DISTRESS ON RA. IV TO RAC INFILTRATED AND WOULD BE D/C'D. PATIENT AMBULATORY. NO SKIN LESION. STATED HAD LLQ ABD PAIN ON TOLERATED LEVEL NOW. ABD FLAT/SOFT. HAD BM YESTERDAY. FINISHED 100% OF REGULAR DIET BREAKFAST. CALM NOW. SITTER AT BED SIDE.
[2018-11-15 09:30] VITALS: BP 112/73
[2018-11-15] MEDS ORDERED: TRAZODONE100 MG PO (09:44)
--- NOTE | 2018-11-15 12:20 | NUR ---
IV INSERTIOM ATTEMPTED X2 BY JACOBO AND ME; UNSUCCESSFUL. LET PATIENT TO EAT LUNCH FIRST.
[2018-11-15 13:23] VITALS: BP 126/84
--- NOTE | 2018-11-15 16:00 | NUR ---
NEW IV INSERTED BY MALACHI VEGA. TO RU ARM W/ 20G OVER NEEDLE CATHETER.
--- NOTE | 2018-11-15 16:37 | NUR ---
Earlier received updated chart for this patient along with updated hold. Currently the intake packet has been sent to several facilities for placement. [facility]/ [facility]/ [facility]/ [facility]/ [facility]/ [facility]/ [facility] Gal[facility]/ [facility] Thurman Please alert us if any of these facilities call you for acceptance Thank you
[2018-11-15 16:38] VITALS: BP 138/89
--- NOTE | 2018-11-15 16:42 | NUR ---
Earlier received updated information and hold for this patient. Intake packet has been sent to several facilities for placement. [facility]/ [facility]/ [facility]/ [facility]/ [facility]/ [facility]/ [facility] Gal[facility]/ [facility] Thurman Please let us know if any facilities accept your patient...Thank you
--- NOTE | 2018-11-15 17:38 | NUR ---
C/O ANXIETY. PATIENT REFUSED ATIVAN 2MG PO PER ORDER. PATIENT REQUESTED TO ATIVAN IVP ONLY.
--- NOTE | 2018-11-15 18:05 | NUR ---
REPORTED TO DORIE WITH PATIENT REFUSED ATIVAN PO. NEW ORDER OF ATIVAN 1MG IVP GIVEN. CONTINUE MONITOR.
--- NOTE | 2018-11-15 19:00 | NUR ---
PLAY IN CELL PHONE NOW. NO S/S OF PAIN. SITTER AT BED SIDE. ENDROSED CARE TO NOC NURSE.
--- NOTE | 2018-11-15 19:20 | NUR ---
PT RECEIVED FROM THE DAY SHIFT RN. PT IS ALERT AND ORIENTED X4, PT IS ANGRY AND AGITATED AT THIS TIME. PT IS COMPLAINING OF ABDOMINAL PAIN IN THE LEFT LOWER QUADRANT, PT STATES PAIN IS SHARP AND STABBING AND IS A 9/[address] THORPE MADE AWARE. PER DR MAURILIO DO WILL GIVE ONE TIME ULTRAM DOSE FOR PAIN. SAFETY AND COMFORT MEASURES MAINTAINED, BED IN LOWEST POSITION, CALL LIGHT WITHIN REACH. WILL CONTINUE TO MONITOR AT THIS TIME.
[2018-11-15 20:17] VITALS: BP 125/84
--- NOTE | 2018-11-16 00:51 | NUR ---
PT IS RESTING IN BED WITH EYES CLOSED, NO ACUTE DISTRESS NOTED. NO S/S OF PAIN NOTED. SITTER IS AT THE BEDSIDE, SAFETY AND COMFORT MEASURES MAINTAINED, BED IN LOWEST POSITION, CALL LIGHT WITHIN REACH. WILL CONTINUE TO MONITOR AT THIS TIME.
--- NOTE | 2018-11-16 03:40 | NUR ---
PT WAS ASKED IF IT WAS OK TO BE MOVED TO ANOTHER ROOM. PT WAS AGGREABLE, TOLD PT MULTIPLE TIMES IT WAS HIS CHOICE IF HE WANTS TO MOVE ROOMS. PT WAS AGGREABLE TO MOVING ROOMS. PT MOVING TO 210 BED A.
--- NOTE | 2018-11-16 03:53 | NUR ---
PT ANGRY AND AGITATED AND NOW STATING HE DOESN'T WANT TO BE MOVED AFTER MOVING ROOMS. PT WAS TOLD MULTIPLE TIMES THAT HE DID NOT HAVE TO MOVE ROOMS IF HE WASNT COMFORTABLE WITH MOVING IT WAS HIS CHOICE. PT WAS AGREEABLE, PT NOW STATING HE DOES NOT WANT TO BE MOVED. WILL MAKE CHARGE NURSE SHAHEEN AWARE. SITTER AT THE BEDSIDE, SAFETY AND COMFORT MEASURES MAINTAINED, BED IN LOWEST POSITION, CALL LIGHT WITHIN REACH.
--- NOTE | 2018-11-16 04:13 | NUR ---
Called the following facilities for psych placement [facility], [facility], [facility], [facility], [facility], [facility] and [facility], still no beds at this time.
--- NOTE | 2018-11-16 04:16 | NUR ---
PT IS ANGRY AND AGITATED WITH STAFF. PT DEMANDED TO SEE THE ONCALL PSYCHIATRIST AND IS REQUESTING TO SPEAK TO THE CHARGE NURSE. ATTEMPTED TO REASSURE AND CALM PATIENT BUT PATIENT IS STILL ANGRY AND AGITATED. CHARGE NURSE SHAHEEN MADE AWARE. WILL CONTINUE TO MONIOTR AT THIS TIME.
[2018-11-16 05:12] VITALS: BP 102/65
--- NOTE | 2018-11-16 05:32 | NUR ---
PT HAS RESTED IN SHORT INTERVALS THROUGHOUT THE SHIFT. PT HAS BEEN AGITATED AND ANGRY FOR MAJORITY OF THE SHIFT. PT GIVEN ONE TIME DOSE OF HALDOL VIA IV PUSH ( SEE MAR). ATTEMPTS TO CALM AND REASSURE PATIENT HAS BEEN MILDLY SUCCESSFUL. SITTER IS AT THE BEDSIDE. PT IS CURRENTLY RESTING IN BED WITH EYES CLOSED, NO ACUTE DISTRESS NOTED AT THIS TIME. SAFETY AND COMFORT MEASURES MAINTAINED, BED IN LOWEST POSITION, CALL LIGHT WITHIN REACH, WILL CONTINUE TO MONITOR AT THIS TIME. WILL ENDORSE CONTINUITY OF CARE TO THE ONCOMING RN.
[2018-11-16 06:22] LABS: PLATELET COUNT 231 x10^3mcL (130-400)
[2018-11-16 06:45] LABS: CARBON DIOXIDE 28.3 mmol/L (21-32); CHLORIDE SERUM 107 mmol/L (98-107); CREATININE SERUM 0.7 mg/dL (0.7-1.3); GFR1 > 60 mL/min; GLUCOSE SERUM 110 mg/dL (74-106); MAGNESIUM 2.2 mg/dL (1.8-2.4); POTASSIUM SERUM 3.6 mmol/L (3.5-5.1); SODIUM SERUM 143 mmol/L (136-145)
--- NOTE | 2018-11-16 06:55 | NUR ---
CRITICAL LAB VALUE FOR WBC OF 3.3, DR THORPE MADE AWARE VIA [facility]. AWAITING FOR FURTHER ORDERS.
--- NOTE | 2018-11-16 07:08 | NUR ---
[facility] still working on placement on pt, will continue to f/u with facilities. Pt 5150 expires today at 10:15
--- NOTE | 2018-11-16 07:10 | NUR ---
RECIEVED PT RESTING IN BED WITH NO S/S OF PAIN, DISTRESS, OR SOB. SITTER AT BEDSIDE. TELE #16 CONNECTED TO PT. DENIES CP OR PRESSURE. PT ON 5150 HOLD, TO THIS MORNING. IV IN LEFT ARM INTACT AND PATENT WITH NO REDNESS OR INFLAMMATION NOTED. SAFETY PRECAUTIONS IN PLACE, CALL LIGHT WITHIN REACH, WILL MONITOR.
[2018-11-16 08:32] VITALS: BP 99/65
--- NOTE | 2018-11-16 08:34 | NUR ---
TERRANCE,IT PROJECT LEAD AT BEDSIDE DISCUSSING POC WITH PATIENT. TERRANCE IS NOTIFIED AND AWARE OF PT C/O ABD PAIN. ANY NEW ORDERS WILL BE CARRIED OUT.
--- NOTE | 2018-11-16 08:37 | NUR ---
PT C/O ANXIETY, MEDICATED WITH ATIVAN PO PER EMAR, WILL REASSESS.
--- NOTE | 2018-11-16 08:40 | NUR ---
JUDITH CARLOS AWARE OF PT BP: 99/65, HR 86, MAP 72, RR 18, T 97.1, WILL MONITOR.
--- NOTE | 2018-11-16 10:18 | NUR ---
PT RESTING IN BED AT THIS TIME, SITTER AT BEDSIDE. NO C/O PAIN, DISTRESS, OR SOB. SAFETY PRECAUTIONS IN PLACE, CALL LIGHT WITHIN REACH, WILL MONITOR.
[2018-11-16 11:38] VITALS: BP 99/66
--- NOTE | 2018-11-16 15:08 | NUR ---
PT RESTING COMFORTABLY IN BED WITH NO C/O PAIN, DTISTRESS, OR SOB. TOLERATING ALL CARES WELL. SITTER AT BEDSIDE. ALL SAFETY PRECAUTIONS WITHIN REACH, WILL CONTINUE TO MONITOR.
[2018-11-16 16:38] VITALS: BP 110/70
--- NOTE | 2018-11-16 17:36 | NUR ---
F/u with facilities: No beds available at this time. [facility], [facility], [facility], [facility], [place], [facility], [facility] Jayjay Alvarado. Pt 5150 , request fax of renewed hold if applicable to [facility] so we can continue to look for placement.
--- NOTE | 2018-11-16 18:50 | NUR ---
PT REPORTS ANXIETY, MEDICATED WITH ATIVAN PER EMAR. WILL REASSESS.
--- NOTE | 2018-11-16 19:00 | NUR ---
RECEIVED PT FROM DAY SHIFT RN. PT IS ALERT AND ORIENTED TO PERSON PLACE TIME AND SITUATION AND ABLE TO FOLLOW COMMANDS. SITTER IS CURRENTLY AT THE BEDSIDE. PT DENIES CHEST PAIN OR SHORTNESS OF BREATH. BREATHING IS EVEN AND UNLABORED. MED-SURG PT. PT CURRENTLY ADMITTED FOR SUICIDAL IDEATION. PT IS COOPERATIVE AT THIS TIME. NON-COMBATIVE. PT IS AMBULATORY. VOIDS FREELY. SKIN IS INTACT AND PT DENES ABD PAIN AT THIS TIME AFTER RECEIVING ZOFRAN AND ATIVAN FROM DAY SHIFT RN. THERE IS RIGHT ARM IV THAT IS CLEAN DRY AND INTACT AT THIS TIME. SAFETY MEASURES ARE IN PLACE. BED IS IN THE LOWEST POSITION. CALL LIGHT IS WITHIN REACH. WILL CONTINUE TO MONITOR PT.
--- NOTE | 2018-11-16 19:00 | NUR ---
PT RESTING IN BED WITH NO C/O PAIN, DISTRESS, OR SOB. ALL CARES TOLERATED WELL. VS WNL. PT STILL ON HOLD. IV INTACT AND PATENT WITH NO REDNESS OR INFLAMMATION NOTED.SAFETY PRECAUTIONS IN PLACE, CALL LIGHT WITHIN REACH, ENDORSED CARE TO NIGHT NURSE.
[2018-11-16 20:37] VITALS: BP 124/83
--- NOTE | 2018-11-16 22:57 | NUR ---
S/W Lydia (RN for patient). Needing new 5150 for patient. Last hold today at 10:15 am. Will fax at [phone] once 5150 is found or written
--- NOTE | 2018-11-17 01:02 | NUR ---
Received new 5150. Called [facility], [facility], [facility], [facility], [facility], [facility], [facility], [facility], [facility], [facility], still no beds available. Try in the am for discharges
--- NOTE | 2018-11-17 02:29 | NUR ---
PT RESTIMG IN BED WITH EYES CLOSED. BREATHING EVEN AND UNLABORED. NO USE OF ACCESSORY MUSCLES. SITER AT THE BEDSIDE. CALM AND COOPERATIVE THROUGHOUT SHIFT THUS FAR. WILL CONITNUE TO MONITOR.
[2018-11-17 05:18] VITALS: BP 98/55
--- NOTE | 2018-11-17 08:01 | NUR ---
RECEIVED PATIENT FROM MALACHI RICHARDSON. PATIENT IN BED AT THIS TIME W NO COMPLAINTS. SITTER AT BEDSIDE. TINSMITH HELPER TERRANCE IN TO SPEAK WITH PATIENT ABOUT PLAN OF CARE. PATIENT STATES UNDERSTANDING AND AGREES. WILL CONTINUE TO AWAIT PLACEMENT FOR PATIENT AT THIS TIME. CALL LIGHT IN REACH.
--- NOTE | 2018-11-17 12:22 | NUR ---
PATIENT OBSERVED TO BE SLEEPING AT THIS TIME. SITTER AT BEDSIDE. WILL CONTINUE TO MONITOR FOR SI. CALL LIGHT IN REACH.
--- NOTE | 2018-11-17 13:15 | NUR ---
Called the following facilities with no bed availability: [facility], s/w Barrett Murphy, s/w Clare Orellana of the [place], left message for intake [facility], s/w Melissa Nix [facility], left message for intake [facility], s/w intake [facility], s/w Ramón Frank
[2018-11-17 16:46] VITALS: BP 112/77
--- NOTE | 2018-11-17 18:31 | NUR ---
PATIENT UP TO BED EATING DINNER TRAY AT THIS TIME. DENIES HARM TO SELF OR OTHERS. WILL ENDORSE TO ONCOMING NURSE. STILL AWAITING DR BROWN TO COME SPEAK W PATIENT. CALL LIGHT IN REACH, SITTER AT BEDSIDE.
[2018-11-17 19:35] VITALS: BP 119/82
--- NOTE | 2018-11-17 19:35 | NUR ---
RECEIVED PT AWAKE ALERT AND VERBALLY RESPONSIVE.ON SITTER FOR 5150 HOLD.DENIES SUICIDAL IDEATION AT THIS TIME BUT VERBALIZED HE'S ANXIOUS ABOUT FEELING THAT HIS CONCERNS ABOUT HIS ABDOMINAL PAIN IS NOT BEING ADRESSED.ATIVAN 2 MG PO ADMINISTERED AT THIS TIME.ENCOURAGED MORE INTERACTION AND VERBALIZED NEEDS WITH STAFF.WILL CONTINUE TO MONITOR.BP 119/82 MM[facility],HR 86
--- NOTE | 2018-11-17 20:00 | NUR ---
BEDSIDE ROUND MADE,PATIENT WITH CONCERN ABOUT ABDOMINAL PAIN AND PAIN MANAGEMENT. INFORMED PATIENT THAT WE WILL TALK TO ASSIGN NURSE AND MD ABOUT CONCERNS.
--- NOTE | 2018-11-17 20:30 | NUR ---
SEEN DR ODEN WALKING IN [facility], APPROACHED MD AND INFORMED HER ABOUT PATIENT COMPLAINT OF ABDOMINAL PAIN AND CONCERN ABOUT PAIN MANAGEMENT,ALSO INFORMED MD ABOUT PATIENT WANTING TO SPEAK TO HER.
--- NOTE | 2018-11-17 20:32 | NUR ---
Follow up calls were made to [facility] contracted psych facilities. [facility], spoke with Codi. No beds available tonight. [facility]ortun[facility] Doming[facility], spoke with Maddison. No beds available tonight. [facility], spoke with Beth. Unit is at full capacity at this time. [facility], spoke with Lindsey. Unit is saturated and can not accommodate patient tonight. [facility], no answer. Left message to call [facility] if they have any beds available. [facility], spoke with Kaz. Unit is full tonight and can not accept patient. [facility], spoke with Gage. No bed available tonight. [facility], spoke with Vilma. They have no room at this time. [facility], spoke with Pb. No beds available tonight. [facility], spoke with nursing superivosr Heike. They can not accommodate patient at this time. [facility], no answer. Left voice message to call [facility] if they can accommodate patient. [facility], no answer. [facility], spoke with Hong. Psych ED is full and no beds available in the psych unit. [facility], spoke with Russell. No adult beds available tonight. [facility], spoke with Sherri. Adolescent beds only. [facility] will continue to look for bed placement and will continue to monitor RN/MD notes.
--- NOTE | 2018-11-17 21:41 | NUR ---
PT INFORMED ABLE TO GET A PO NORCO ORDER FOR HIM TONIGHT BUT GOT UPSET VERBALIZING"THEY JUST DON'T GET IT"."WHEN I TOOK NORCO LAST NIGHT ,MADE MY PAIN WORST".OFFERED DUE NIGHT MEDS BUT DECIDED TO REFUSE TO TAKE ALL MEDS TONIGHT.WILL INFORM RESIDENT.
--- NOTE | 2018-11-17 22:36 | NUR ---
DR. CHOE WENT TO TALK TO PT.OFFERED DUE MEDS AGAIN AT THIS TIME BUT STILL STRONGLY REFUSING,INFORMED OFRISKS AND BENEFITS BUT CONTINUES TO REFUSED.
--- NOTE | 2018-11-18 00:30 | NUR ---
PT CALLED AND ASKED ABOUT HIS PAIN MEDICINE.CALLED DR. ODEN AND MADE AWARE OF PTS REQUEST AND INFORMED THIS NURSE ABOUT HER CONVERSATION WITH PSYCHITRIST THAT PT WILL BE TRANSFERING TO [facility] SO THEY CANNOT GIVE ANY IV PAIN MEDS REQUESTED.SPOKE WITH PT AND DISCUSSED CONVERSATION WITH DR. ODEN.PT GOT UPSET AND THREATENS TO GO AMA AND SHOWED COMPLAINTS WITH L.A TIMES THAT HE FILED, VERBALIZING HE WAS TOLD BY DR. JASON THAT HE WILL BE DISCHARGE HOME TOMORROW AND NOT TO A FACILTY.REQUESTING TO SPEAK WITH CHARGE NURSE.CHARGE NURSE SPOKE WITH DR. ODEN AND COMMUNICATED TO PT ABOUT THEIR CONVERSATION.DR. ODEN TO INFORM SENIOR RESIDENT AND WILL COME AND SEE PT.
--- NOTE | 2018-11-18 01:02 | NUR ---
DR. GARCIA, DR. GONZALEZ AND DR. ODEN AND FREIGHT CAR LOADER IN TO SEE PT AND DISCUSS ABOUT HIS CONCERNS.
--- NOTE | 2018-11-18 02:35 | NUR ---
PT CALLED AGAIN AND ASKING WHAT HAPPENED TO HIS PAIN MEDICATIONS.ASKED PT ABOUT HIS CONVERSATIONS WITH THE DOCTOR EARLIER AND SAID.MD WILL LOOK INTO HIS CHARTS AND DETERMINED THE NEED FOR ANY MORE MEDICATIONS.CALLED DR. ODEN AND MADE AWARE AND INFORMED THIS NURSE THAT THERE IS NO INDICATION FOR STRONGER PAIN MEDICATIONS AT THIS TIME AND CONTINUE WITH THE PLAN TRANSFER TO PSYCH FACILITY TODAY.WILL INFORM PT.
--- NOTE | 2018-11-18 03:05 | NUR ---
PT REQUESTING FOR PERCOCET PO AT THIS TIME,VERBALIZING NORCO DOESN'T HELP WITH HIS PAIN.DR. ODEN MADE AWARE BUT CANNOT GIVE PERCOCET BUT ONLY NORCO EARLIER ORDERED.ALSO ASKED MD IF REFUSED MEDS EARLIER CAN STILL BE GIVEN AT THIS TIME AND SAYS IT'S OK .PT MADE AWARE AND AGREEABLE AT THIS TIME.
--- NOTE | 2018-11-18 03:10 | NUR ---
NORCO 7.5 MG AND ATIVAN 2 MG PO ADMINISTERED AT THIS TIME.COMFORT MEASURES RENDERED.REMAINS ANXIOUS AND AGITATED BUT SLOWLY STARTING TO COMMUNICATE AGAIN CALMLY WITH STAFF.RESTFUL ENVIRONMENT PROVIDED.WILL CONTINUE TO MONITOR.
[2018-11-18 03:35] VITALS: BP 123/80
--- NOTE | 2018-11-18 04:45 | NUR ---
PT SLEEPING AT THIS TIME.ON 1:1 SITTER.NO S/S OF PAIN OR DISCOMFORT.ALL NEEDS MET.WILL CONTINUE TO MONITOR.
[2018-11-18 06:20] LABS: BASOPHIL % 1.1 % (0-2); PLATELET COUNT 270 x10^3mcL (130-400); RED CELL DISTRIBUTION WIDTH 12.5 % (11.5-14.5)
[2018-11-18 06:22] LABS: CARBON DIOXIDE 29.8 mmol/L (21-32); CHLORIDE SERUM 107 mmol/L (98-107); CREATININE SERUM 0.8 mg/dL (0.7-1.3); GFR1 > 60 mL/min; GLUCOSE SERUM 77 mg/dL (74-106); POTASSIUM SERUM 3.8 mmol/L (3.5-5.1); SODIUM SERUM 143 mmol/L (136-145)
--- NOTE | 2018-11-18 07:19 | NUR ---
[facility] still working on finding placement for this pt. Will continue to f/u with facilities. Will contact with any placement updates. [facility]: phone: [phone]
[2018-11-18 07:20] VITALS: BP 113/76
--- NOTE | 2018-11-18 07:25 | NUR ---
RECEIVED PATIENT ASLEEP, SITTER REMAIN AT BEDSIDE. PER REPORT PATIENT JUST FALL ASLEEP AROUND 0500 AM. WILL COME BACK TO ASSESS PT.
--- NOTE | 2018-11-18 07:54 | NUR ---
PATIENT AWAKE/ALERT IN BED, NO PAIN AT THIS TIME. AFTER SCHOOL PROGRAM ASSISTANT TERRANCE AT BEDSIDE DISCUSS POC, DISCUSS PAIN MANAGEMENT WITH PATIENT PLACE ON NORCO PO Q6H PRN, PATIENT WAS ALSO MADE AWARE NO IV PAIN MED AND PATIENT AGREE, AWAITING FOR DR. BROWN TO CLEAR 5150 HOLD AND HOLD IS UP TOMORROW.
--- NOTE | 2018-11-18 08:56 | NUR ---
PATIENT RESTING IN BED ASKING FOR NAUSEA MED, ZOFRAN 4MG IVP GIVEN, ALL PO MEDS AND NORCO 1 TAB PO GIVEN PER REQUEST. PATIENT TOLERATED WELL. PAIN TO ABD IS ABOUT 5/10. CONT TO MONITOR.
[2018-11-18 11:33] VITALS: BP 110/68
--- NOTE | 2018-11-18 12:52 | NUR ---
PATIENT RESTING IN BED NO COMPLAINS, REFUSED MYLICON PO. NEEDS MET. SITTER REMAIN AT BEDSIDE CONT TO MONITOR.
--- NOTE | 2018-11-18 14:09 | NUR ---
PATIENT RESTING IN BED NO C/O PAIN BUT C/O NAUSEA, LIBRIUM 20MG PO GIVEN, MEDICATED WITH ZOFRAN 4MG IVP TO MADISON IV PATENT. NEEDS MET. SITTER REMAIN AT BEDSIDE.
--- NOTE | 2018-11-18 17:22 | NUR ---
PATIENT SAT UP IN BED SAS STATISTICAL PROGRAMMER AT BEDSIDE TAKING VITALS, NORCO 1 TAB PO GIVEN FOR C/O 6/10 ABD PAIN. NEEDS MET. SITTER REMAIN AT BEDSIDE. CONT TO MONITOR.
[2018-11-18 17:31] VITALS: BP 116/78
--- NOTE | 2018-11-18 18:34 | NUR ---
PATIENT SAT UP IN BED WATCHING TV, NO PAIN AT THIS TIME. ATIVAN 2MG PO GIVEN FOR ANXIETY, SITTER REMAIN AT BEDSIDE, CONT TO MONITOR.
--- NOTE | 2018-11-18 19:15 | NUR ---
CARE ASSUMED FROM OUTGOING RN. PT SITTING UP IN BED EATING A SANDWICH. SITTER AT BEDSIDE. NO ACUTE DISTRESS NOTED. EVEN AND UNLABORED RESPIRATIONS ON RA. IVL INTACT. DENIES ANY PAIN AT THIS TIME. BED IN LOWEST POSITION. SIDE RAILS UPX2. CALL LIGHT WITHIN REACH. WILL CONTINUE TO MONITOR.
[2018-11-18 20:57] VITALS: BP 102/67
--- NOTE | 2018-11-19 00:10 | NUR ---
PT ASLEEP COMFORTABLY IN BED. NO ACUTE DISTRESS NOTED. SITTER AT BEDSIDE. EVEN AND UNLABORED RESPIRATION NOTED ON RA. IVL INTACT. BED IN LOWEST POSITION. SIDE RAILS UPX2. CALL LIGHT WITHIN REACH. WILL CONTINUE TO MONITOR.
--- NOTE | 2018-11-19 00:51 | NUR ---
PT RESTING COMFORTABLY IN BED. NO ACUTE DISTRESS NOTED. SITTER AT BEDSIDE. PT REFUSED MYLANTA AT THIS TIME. BED IN LOWEST POSITION. SIDE RAILS UPX2. CALL LIGHT WITHIN REACH. WILL CONTINUE TO MONITOR.
[2018-11-19 05:52] VITALS: BP 98/56
--- NOTE | 2018-11-19 06:44 | NUR ---
PT SLEPT COMFORTABLY IN INTERVALS THROUGHOUT THE SHIFT. NO ACUTE CHANGES NOTED. EVEN AND UNLABORED RESPIRATIONS ON RA. IVL PATENT AND INTACT. ALL NEEDS TENDED TO AND MET. C/O ABD PAIN AND NAUSEA MEDICATED PER EMAR. PT CALM AND COOPERATIVE THROUGHOUT THE SHIFT. SITTER AT BEDSIDE. BED IN LOWEST POSITION. SIDE RAILS UPX2. CALL LIGHT WITHIN REACH. WILL ENDORSE TO ONCOMING SHIFT.
--- NOTE | 2018-11-19 08:00 | NUR ---
PATIENT HAS BEEN AWAKE AND COOPERATIVE AT THIS TIME. FULLY AMBULATORY AND WITH SITTER AT BEDSIDE DUE TO 5150 STATUS. PATIENT HAS NOT INDICATED ANY SUICIDAL IDEATION OVERNIGHT OR TO THIS STAFF. PATIENT IS IN NO PAIN OR DISCOMFORT AT THIS TIME.
[2018-11-19 08:01] VITALS: BP 101/63
--- NOTE | 2018-11-19 08:07 | NUR ---
Report from cnc machinist 2nd shift facilities reached for possible placement. Have a great day! Spoke with Prachi - [facility] - No Beds Ramon - [facility] - No Beds Beth - [facility] - No Beds Waldo [facility] - [facility] - No Beds Kaz - Jarrod - No Beds Claudine - [place] - No Beds M[facility] - [facility] - No Beds Pb - [place] - No Beds Estuardo - [facility] [place] - No Beds [place] - [place] - No Beds Ramon - Justin Haddad - No Beds Blake - [facility] - No Beds We will continue to contact all facilities for placement
[2018-11-19] MEDS ORDERED: LAC30L PO (08:59)
[2018-11-19] MEDS ORDERED: TRAZODONE50 M1 PO (08:59)
[2018-11-19] MEDS ORDERED: BUS10 PO (08:59)
[2018-11-19] MEDS ORDERED: REM15 PO (09:23)
--- NOTE | 2018-11-19 10:39 | NUR ---
RECEIVED PATIENT ON 5150 AT THIS TIME. PATIENT HAS BEEN ANXIOUS AND DOES NOT SEEM SUICIDAL AT THIS TIME. PATIENT HAD BEEN WITH HISTORY OF PTS AND HISTORY OF MENTAL HEALTH ISSUES AND ON BUSPAR AND APPARENTLY HAS ETOH WELL. PATIENT AH CLEAR BREATH SOUNDS AND BOWEL SOUND ACTIVE. PATIENT IS AMBULATORY AND WITH VITALS AT THIS TIME AT 96.6, 84, 18, 101/63, 97% ON ROOM AIR. THE 5150 IS UP TODAY AND THE PLAN IS FOR DICHARGE HOME. PATIENT HAS INDICATED HE IS OK TO GO HOME. HE ALSO HAS A HISTORY OF DIVERTICULITIS. PATIENT REFUSED HIS BOWEL MEDICATION AND WOULD NOT TAKE THE METAMUCIL, COLACE OR THE LACTULOSE. PATIENT HAS BEEN SEEN BY THE NEUROSURGICAL PHYSICIAN ASSISTANT AND INFORMED HE IS TO BE DISCHARGE HOME TODAY. AWAITING THE COMPLETION OF ORDERS INDICATED.
--- NOTE | 2018-11-19 11:09 | NUR ---
Continuing to help facilitate placement for patient. The following facilities have been refaxed the paperwork. [facility]/ [facility]/ [facility]/ Gilda Thurman If any calls are recived for transfer please alert us as well as we will do the same. Thank You, have a great day!!
[2018-11-19 11:41] VITALS: BP 101/63
--- NOTE | 2018-11-19 13:04 | NUR ---
[facility] HAS TAXI VOUCHER FOR GETTING HOME. [facility] DISCHARGE TO HOME WITH PRESCRIPTIONS INDICATED. NO INDICATION OF SUICIDAL IDEATION NOTED.
== END 2018-11-19 12:16 | disposition home or self-care (01) | DRG 812 ==
LOC: ED 23:00 → MU 11-08 16:50 → DU 11-08 16:50 → MU 11-08 20:01 → DU 11-08 20:48 → MU 11-12 10:30 → DU 11-12 15:29 → MU 11-16 17:08
PROVIDERS: Emergency Medicine; Internal Medicine; Internal Medicine Gastroenterology; ADMIT Internal Medicine
DX: T43.222A Poisoning by selective serotonin reuptake inhibitors, intentional self-harm, initial encounter (principal); K63.2 Fistula of intestine; E87.0 Hyperosmolality and hypernatremia; K57.32 Diverticulitis of large intestine without perforation or abscess without bleeding; T51.0X2A Toxic effect of ethanol, intentional self-harm, initial encounter; F10.239 Alcohol dependence with withdrawal, unspecified; F10.229 Alcohol dependence with intoxication, unspecified; F43.10 Post-traumatic stress disorder, unspecified; Z68.25 Body mass index [BMI] 25.0-25.9, adult; Y90.8 Blood alcohol level of 240 mg/100 ml or more; Y92.59 Other trade areas as the place of occurrence of the external cause
CPT/HCPCS: 83880; G0378; G0480; J0360; J1630; J2060; J2270; J2405; J2543; J7030; J7040; J7050; Q0092; Q0162

== ENCOUNTER 2018-11-24 22:14 | Inpatient (IN) | payer MEDICAID ==
[~2018-11-24] VITALS: Ht 182.9 cm; Wt 90.3 kg
[~2018-11-24 22:14] MED LIST changes: +BUS10 PO; +LAC30L PO; +REM15 PO; +TRAZODONE100 MG PO; +TRAZODONE50 M1 PO
[2018-11-24 22:28] VITALS: Ht 182.9 cm; Wt 90.3 kg
--- NOTE | 2018-11-24 22:41 | NUR ---
PATIENT AAOX4 BIB [facility] FOR 5150 HOLD. PT STS HE HAS BEEN FEELING DEPRESSED LATELY AND HAS SUICIDAL IDEATION. PT DENIES HOMICIDAL IDEATION. PT STS HE HAS PTSD AND "JUST WANTS HELP". PT SAYS HE HAS HAD A PROBLEM WITH ALCOHOL ABUSE IN THE PAST AND "I FELL OFF THE WAGON". BREATHING E/U, SKIN WARM, DRY AND INTACT. PT PLACED ON ALL MONITORS FOR FURTHER OBSERVATION. SAFETY CHECK OF ROOM COMPLETE, PTS BELONGINGS TAKEN OUT OF THE ROOM. DRAPES OPEN AND PATIENT IN FULL VIEW OF NURSES STATION.
[2018-11-24 23:22] LABS: BASOPHIL % 1.9 % (0-2); PLATELET COUNT 387 x10^3mcL (130-400); RED CELL DISTRIBUTION WIDTH 12.6 % (11.5-14.5)
[2018-11-24 23:27] LABS: CALCIUM 8.2 mg/dL (8.5-10.1); CARBON DIOXIDE 29.3 mmol/L (21-32); CHLORIDE SERUM 103 mmol/L (98-107); CREATININE SERUM 0.7 mg/dL (0.7-1.3); GFR1 > 60 mL/min; GLUCOSE SERUM 98 mg/dL (74-106); SODIUM SERUM 143 mmol/L (136-145)
[2018-11-24 23:31] LABS: ALBUMIN 3.8 g/dL (3.4-5.0); ALKALINE PHOSPHATASE 55 U/L (46-116); ALT/SGPT 21 U/L (16-63); AST/SGOT 18 U/L (15-37); BILIRUBIN TOTAL 0.4 mg/dL (0.20-1.00); LIPASE 152 IU/L (73-393); TOTAL PROTEIN, SERUM 7.4 g/dL (6.4-8.2)
[2018-11-24 23:43] LABS: AMPHETAMINE QUAL UR NONE DETECTED (See below)
--- NOTE | 2018-11-25 00:28 | NUR ---
MEDICATED PER MD ORDERS
--- NOTE | 2018-11-25 00:58 | NUR ---
PATIENT RESTING ON GURNEY- BREATHING E/U - NAD NOTED. WILL CONTINUE TO MONITOR.
--- NOTE | 2018-11-25 01:30 | NUR ---
PATIENT LYING ON GURNEY, VERY COOPERATIVE AND CORDIAL. PT SHARED THAT HE WAS CURRENTLY FROM SPOUSE WHICH IN PART IS ONE OF THE REASONS HE'S DEPRESSED. PT VSS, BREATHING E/U, WILL CONTINUE TO MONITOR.
--- NOTE | 2018-11-25 01:30 | NUR ---
PATIENT RESTING ON GURNEY- CORDIAL AND COOPERATIVE. PT STS "I'M RECENTLY FROM MY AND THATS ONE OF THE REASONS I'M DEPRESSED". PT BREATHING E/U. VSS NAD NOTED. WILL CONTINUE TO MONITOR.
--- NOTE | 2018-11-25 03:52 | NUR ---
PATIENT AMBULATED TO BATHROOM WITHOUT ASSISTANCE. GAIT STEADY.
--- NOTE | 2018-11-25 04:46 | NUR ---
MEDICATED PER MD ORDERS
--- NOTE | 2018-11-25 05:33 | NUR ---
PATIENT LYING ON GURNEY- BREATHING E/U- VSS. NAD NOTED. WILL CONTINUE TO MONITOR.
--- NOTE | 2018-11-25 06:34 | NUR ---
PATIENT LYING ON BACK ON GURNEY- BREATHING E/U, NAD NOTED. WILL CONTINUE TO MONITOR.
--- NOTE | 2018-11-25 07:00 | NUR ---
PROVIDED REPORT TO MALACHI BHAGAT FOR CONTINUED CARE OF PATIENT.
--- NOTE | 2018-11-25 07:28 | NUR ---
PT IS AWAKE AND ALERT X 4. COOPERATIVE. STATES HE HAS A PLAN TO HANG HIMSELF DUE TO A LOT OF STUFF GOING ON AT HOME. PT IS IN FULL VIEW OF NURSING STATION, SIDE RAILS UP, WILL CONTINUE TO MONITOR.
--- NOTE | 2018-11-25 08:30 | NUR ---
PT GIVEN BFAST TRAY. PT SITTING UP ON GURNEY, EATING WITH NAD
--- NOTE | 2018-11-25 09:02 | NUR ---
Recieved report from shift mechanic. Will continue to look for placement.
--- NOTE | 2018-11-25 09:05 | NUR ---
PT GIVEN CELL PHONE PER REQUEST. OKAY BY CHARGE NURSE CHINO. PT REMAINS IN FULL VIEW OF NURSING STATION. WILL CONTINUE TOMONITOR.
--- NOTE | 2018-11-25 11:21 | NUR ---
PT SLEEPING ON GURNEY WITH NAD EASIY AROUSABLE. PT REMAINS IN FULL VIEW OF NRUSING STATION, WILL CONTINUE TOMONITOR.
[2018-11-25 13:12] LABS: microscopic required? NO
--- NOTE | 2018-11-25 13:34 | NUR ---
PT IS SLEEPING BUT EASILY AROUSABLE. NO ACUTE DISTRESS NOTED. PT IS IN DIRECT VIEW OF NURSES STATION.
[2018-11-25 13:49] LABS: UA SPECIFIC GRAVITY <=1.005 (1.005-1.035); urine erythrocyte NEGATIVE (NEGATIVE)
[2018-11-25] MEDS ORDERED: CYMBALTA20 M1 PO (17:39)
[2018-11-25] MEDS ORDERED: BACLOFEN10 MG PO (17:39)
[2018-11-25] MEDS ORDERED: CEL100 PO (17:40)
--- NOTE | 2018-11-25 17:45 | NUR ---
REPORT GIVEN TO THI ON MS/T FOR FURTHER CARE OF PT. SITTER NOT AVAIL UNTIL AFTER CHANGE OF SHIFT
--- NOTE | 2018-11-25 19:35 | NUR ---
PT TRANSFERRED TO 243B BY [facility] BY ROBERT LEAL AND ALPESH RN. PT ON FULL CM FOR TRANSFER. PT AOX4, RESP EVEN AND UNLABORED, NO ACUTE DISTRESS NOTED. PT ACCEPTED BY CODING QUALITY ANALYST RN TO ASSUME PT CARE.
[2018-11-25 19:56] VITALS: BP 160/109
--- NOTE | 2018-11-25 20:04 | NUR ---
RECEIVED PT FROM ER. PT ADMIT FOR ETOH WITHDRAWAL, PT IS A/O X4, VERBAL RESPONSIVE, ABLE TO TELL WHAT HE NEEDS. LUNG SOUND CLEAR BILATERAL, NO COUGH, NO SOB, PT IS ON TELE 13, NSR, DENY ANY CHEST PAIN OR DISCOMFORT, BOWEL SOUND PRESENT ALL 4 QUADRANTS, NO DISTENTION, C/O ABD PAIN AT LEFT LOWER QUADRANT. NO TENDER. PEDAL PULSE PRESENT BOTH FEET, NO EDEMA, IV AT LEFT UPPER ARM, PT DENY ANY SUICIDAL THOUGHS AT THIS MOMENT, SITTER AT BEDSITE AND ROOM AT CLOSE TO STATION, WILL CONTINUE TO [facility].
--- NOTE | 2018-11-25 20:30 | NUR ---
[facility]
--- NOTE | 2018-11-25 21:20 | NUR ---
PT C/O PAIN TO RT LOWER RIB 10/13 PER ASSESSMENT, NORCO PO GIVEN BUT PT REFUSED STATED THAT IT WONT WORK HE'S ASKING FOR MORPHINE IVP, HE SAID THAT THE DOCTOR AT ER TOLD HIM THAT WILL PRESCRIBE MORPHINE IN THE UNIT, CALLED DR ODEN, AWAITING FOR CALL BACK.
[2018-11-25 21:56] LABS: MAGNESIUM 2.1 mg/dL (1.8-2.4); PHOSPHOROUS 3.5 mg/dL (2.5-4.9)
--- NOTE | 2018-11-25 22:00 | NUR ---
DR ODEN REFUSED TO GIVE MORPHINE IV, PT DON'T NEED IT, INFORMED PT AND HE JUST WANT TO GET NORCO PO INSTEAD.
[2018-11-25 22:24] LABS: FREE T4 0.83 ng/dL (0.76-1.46); FREE THYROXINE INDEX 2.4 ug/dL (1.4-4.5); T4(THYROXINE) 7.1 ug/dL (4.7-13.3)
[2018-11-25 23:27] LABS: T3 TOTAL 1.17 ng/mL
--- NOTE | 2018-11-26 03:28 | NUR ---
ASLEEP, WITH 1:1 SITTER FOR SUICIDAL IDEATION, COMFORTABLE AND CALM, IVF INFUSING WELL ORDERED, CHECKED AT INTERVALS.
--- NOTE | 2018-11-26 05:08 | NUR ---
PT IS AWAKE NO SUICIDAL IDEATION, ABLE TO MAKE NEEDS KNOWN AND ANSWERS QUESTION APPROPRIATELY, COOPERATIVE AND CALM, DENIES PAIN, AM BLD DRAW DONE, IVF INFUSING WELL, IV ACCESS VANITA PATENT NON INFIL, CONT TO MONITOR.
[2018-11-26 05:32] VITALS: BP 137/86
--- NOTE | 2018-11-26 07:04 | NUR ---
RECEIVED PT FROM CHARGING BOARD OPERATOR NURSE. PT RESTING IN BED, AOX4, RESP E/U ON RA. REPORTED MILD ABD PAIN BUT TOLERABLE, DENIES N/V, NO REQUEST FOR PAIN MEDS AT THIS TIME. ON TELE 13 SHOWING NSR, HR: 92. IV TO VANITA W/ NO SIGNS OF INFILTRATION, IVF INFUSING WELL. BED IN LOWEST POSITION AND CALL LIGHT WITHIN REACH. WILL CONTINUE TO MONITOR.
[2018-11-26 07:17] LABS: BASOPHIL % 1.3 % (0-2); PLATELET COUNT 288 x10^3mcL (130-400); RED CELL DISTRIBUTION WIDTH 12.9 % (11.5-14.5)
[2018-11-26 07:30] LABS: CALCIUM 8.2 mg/dL (8.5-10.1); CARBON DIOXIDE 24.2 mmol/L (21-32); CHLORIDE SERUM 103 mmol/L (98-107); CREATININE SERUM 0.6 mg/dL (0.7-1.3); GFR1 > 60 mL/min; GLUCOSE SERUM 85 mg/dL (74-106); POTASSIUM SERUM 3.7 mmol/L (3.5-5.1); SODIUM SERUM 138 mmol/L (136-145)
--- NOTE | 2018-11-26 07:36 | NUR ---
[facility] still actively working on finding placement for this pt. Will continue to f/u with contracted facilities. Will contact with any placement updates
[2018-11-26 07:57] VITALS: BP 140/88
[2018-11-26 12:22] VITALS: BP 141/87
--- NOTE | 2018-11-26 12:29 | NUR ---
f/u with the following facilities: [facility]: No beds at this time per Kaycee. [facility]: s/w Edgard, states pending D/Cs, will review packet. [facility]: s/w Willis, states they accept pts aged 60+ [facility]: s/w Linette, [facility] will be reviewing packets in approx 1 hour. Packet faxed [facility]: s/w Willis, states open beds, faxed for review. [facility]: s/w Beth, [facility] no beds at this time. Will continue to f/u with contracted facilities, will contact with any update.
--- NOTE | 2018-11-26 17:55 | NUR ---
PT SITTING UPRIGHT IN BED HAVING DINNER, AOX4, RESP E/U ON RA. PT CALM AND COMPLIANT W/ CARE AT THIS TIME, NO ACUTE DISTRESS NOTED. IV TO VANITA W/ NO SIGNS OF INFILTRATION, IVF INFUSGIN WELL. BED IN LOWEST POSTION AND CALL LIGHT WITHIN REACH. WILL ENDORSE TO ONCOMING NURSE.
[2018-11-26 18:22] VITALS: BP 146/93
--- NOTE | 2018-11-26 20:43 | NUR ---
PT CURRENTLY RESTING IN BED, NO ACUTE DISTRESS. A/O X4. TELE #13 SHOWING SINUS RHYTHM, DENIES CHEST PAIN. PULSES PALPABLE IN ALL EXTREMITIES, NO EDEMA NOTED. LUNG SOUNDS CTA BILATERALLY, DENIES SOB. BOWEL SOUNDS ACTIVE, LAST BM 11/26/18, C/O WATERY STOOLS. VOIDING WELL. AMBULATORY. SKIN INTACT. IV PATENT AND INTACT. DENIES SUICIDAL IDEATION AT THIS TIME. BED IN LOWEST POSITION, SIDE RAILS UP X2, CALL LIGHT WITHIN REACH. SITTER AT BEDSIDE. WILL CONTINUE TO MONITOR.
[2018-11-26 21:12] VITALS: BP 129/82
--- NOTE | 2018-11-26 23:52 | NUR ---
PT CURRENTLY RESTING IN BED, NO ACUTE DISTRESS. WILL CONTINUE TO MONITOR.
--- NOTE | 2018-11-27 01:36 | NUR ---
Still no updates on bed placement with [facility] contracted psych facilities. [facility] will continue to find bed placement and monitor ED/MD notes.
[2018-11-27 05:03] VITALS: BP 140/86
[2018-11-27 06:36] LABS: BASOPHIL % 1.2 % (0-2); PLATELET COUNT 243 x10^3mcL (130-400); RED CELL DISTRIBUTION WIDTH 12.7 % (11.5-14.5)
[2018-11-27 06:46] LABS: CALCIUM 7.7 mg/dL (8.5-10.1); CARBON DIOXIDE 24.4 mmol/L (21-32); CHLORIDE SERUM 104 mmol/L (98-107); CREATININE SERUM 0.6 mg/dL (0.7-1.3); GFR1 > 60 mL/min; GLUCOSE SERUM 85 mg/dL (74-106); POTASSIUM SERUM 3.9 mmol/L (3.5-5.1); SODIUM SERUM 139 mmol/L (136-145)
--- NOTE | 2018-11-27 06:50 | NUR ---
PT SLEPT PERIODICALLY THROUGHOUT NIGHT, NO ACUTE DISTRESS. ALL NEEDS MET AND ATTENDED TO. NO SIGNIFICANT CHANGES. IV PATENT AND INTACT. MEDICATED PAIN PER EMAR. BED IN LOWEST POSITION, SIDE RAILS UP X2, CALL LIGHT WITHIN REACH. WILL ENODRSE CARE TO ONCOMING NURSE.
--- NOTE | 2018-11-27 07:30 | NUR ---
SEEN IN BED AAOX4. NO RESP DISTRESS NOTED ON ROOM AIR. ON TELE#13 NSR. STATED PAIN TO ABDOMEN SUBSIDED AFTER PAIN MEDS GIVEN LAST NIGHT. DENIES ANY SUICIDAL IDEATION AT THIS TIME. IVF NS AT 100ML/HR TO VANITA INFUSING WELL. SITTER 1:1 AT BEDSIDE FOR 5150HOLD. PLAN OF CARE DISCUSSED. CALL LIGHT PLACED WITHIN EASY REACH. SIDERAILS UP X2. SITTER 1:1 AT BEDSIDE.
[2018-11-27 08:36] VITALS: BP 146/90
--- NOTE | 2018-11-27 10:46 | NUR ---
STATED FEELING ANXIOUS AND ASKED FOR ATIVAN. ATIVAN 2MG IVP SLOWLY GIVEN, WILL CONTINUE TO MONITOR.
--- NOTE | 2018-11-27 18:23 | NUR ---
NO ANY DISTRESS THROUGHOUT SHIFT. ATIVAN 2MG IV GIVEN X1 FOR ANXIOUS WITH GOOD EFFECTIVE. BRP. REFUSED PAIN MEDS OFFERRED FOR ABDOMINAL PAIN. SL TO VANITA INTACT AND PATENT. SITTER 1:1 AT BEDSIDE.
--- NOTE | 2018-11-27 20:16 | NUR ---
PT CURRENTLY RESTING IN BED, NO ACUTE DISTRESS. A/O X4. TELE #13 SHOWING SINUS RHYTHM, DENIES CHEST PAIN. PULSES PALPABLE IN ALL EXTREMITIES, NO EDEMA NOTED. LUNG SOUNDS CTA BILATERALLY, DENIES SOB. BOWEL SOUNDS ACTIVE, LAST BM 11/27/18. VOIDING WELL. AMBULATORY. SKIN INTACT. C/O ABD PAIN 09/13, REFUSING PAIN MEDICATION AT THIS TIME. IV PATENT AND INTACT. BED IN LOWEST POSITION, SIDE RAILS UP X2, CALL LIGHT WITHIN REACH. WILL CONTINUE TO MONITOR.
--- NOTE | 2018-11-27 20:51 | NUR ---
Received change of shift report, will continue to monitoe for placement
[2018-11-27 22:00] VITALS: BP 125/85
--- NOTE | 2018-11-28 00:03 | NUR ---
PT CURRENTLY RESTING IN BED, NO ACUTE DISTRESS. WILL CONTINUE TO MONITOR.
[2018-11-28 06:08] VITALS: BP 131/70
[2018-11-28 06:40] LABS: PLATELET COUNT 252 x10^3mcL (130-400); RED CELL DISTRIBUTION WIDTH 12.6 % (11.5-14.5)
[2018-11-28 06:49] LABS: CALCIUM 8.2 mg/dL (8.5-10.1); CARBON DIOXIDE 26.2 mmol/L (21-32); CHLORIDE SERUM 104 mmol/L (98-107); CREATININE SERUM 0.7 mg/dL (0.7-1.3); GFR1 > 60 mL/min; GLUCOSE SERUM 83 mg/dL (74-106); POTASSIUM SERUM 3.7 mmol/L (3.5-5.1); SODIUM SERUM 140 mmol/L (136-145)
--- NOTE | 2018-11-28 06:49 | NUR ---
PT SLEPT PERIODICALLY THROUGHOUT NIGHT, NO ACUTE DISTRESS. ALL NEEDS MET AND ATTENDED TO. NO SIGNIFICANT CHANGES. IV PATENT AND INTACT. BED IN LOWEST POSITION, SIDE RAILS UP X2, CALL LIGHT WITHIN REACH. WILL ENDORSE CARE TO ONCOMING NURSE.
--- NOTE | 2018-11-28 08:00 | NUR ---
TOLERATED TO REGULAR BREAKFAST WELL. DENIES NAUSEA. STATED ABDN PAIN IS TOLERABLE.
--- NOTE | 2018-11-28 08:10 | NUR ---
SEEN BY DOCTOR MAGANA AT BEDSIDE. 5150 HOLD DISCONTINUED. PATIENT MADE AWARE PLAN OF CARE.
[2018-11-28 08:22] VITALS: BP 144/97
--- NOTE | 2018-11-28 08:26 | NUR ---
STATED FEELING ANXIOUS AND ASKED FOR ATIVAN. ATIVAN 2MG IVP SLOWLY GIVEN. WILL CONTINUE TO MONITOR.
--- NOTE | 2018-11-28 09:30 | NUR ---
SANDWICH AND JUICE PROVIDED PER PATIENT'S REQUESTED.
[2018-11-28 12:04] VITALS: BP 125/94
--- NOTE | 2018-11-28 12:52 | NUR ---
PATIENT ASKED FOR ATIVAN STATED THAT HE WANTS TO BE ABLE TO HOLD THE SPOON WITHOUT HANDS SHAKING. ATIVAN 2MG IVP SLOWLY GIVEN, NO ADVERSE REACTION NOTED.
[2018-11-28 16:14] VITALS: BP 138/91
--- NOTE | 2018-11-28 17:33 | NUR ---
AMBULATED ON THE HALLWAY WITH STEADY GAIT. PLEASANT. TOLERATED TO DIET WELL. ATIVAN GIVEN X2 FOR ANXIOUSNESS. NORCO X1 AND BENTYL X1 FOR LLQ ABDOMINAL PAIN. HAD BM SOFT BM X1. IV S/L TO VANITA FLUSHED PATENT.
[2018-11-28 19:22] VITALS: BP 111/72
--- NOTE | 2018-11-28 20:06 | NUR ---
PT CURRENTLY RESTING IN BED, NO ACUTE DISTRESS. A/O X4. TELE #13 SHOWING SINUS RHYTHM, DENIES CHEST PAIN. PULSES PALPABLE IN ALL EXTREMITIES, NO EDEMA NOTED. LUNG SOUNDS CTA BILATERALLY, DENIES SOB. BOWEL SOUNDS ACTIVE, LAST BM 11/27/18, PT C/O DIARRHEA. VOIDING WELL. AMBULATORY. SKIN INTACT. C/O ABD PAIN 09/13, REFUSING PAIN MEDICATION AT THIS TIME. IV PATENT AND INTACT. BED IN LOWEST POSITION, SIDE RAILS UP X2, CALL LIGHT WITHIN REACH. WILL CONTINUE TO MONITOR.
--- NOTE | 2018-11-29 01:31 | NUR ---
IV IN VANITA LEAKING, DC'D, NEW IV STARTED IN LEFT HAND. PT CURRENTLY RESTING IN BED, NO ACUTE DISTRESS. WILL CONTINUE TO MONITOR.
[2018-11-29 04:52] VITALS: BP 127/74
--- NOTE | 2018-11-29 06:06 | NUR ---
PT SLEPT PERIODICALLY THROUGHOUT NIGHT, NO ACUTE DISTRESS. ALL NEEDS MET AND ATTENDED TO. NO SIGNIFICANT CHANGES. IV PATENT AND INTACT. MEDICATED PAIN PER EMAR. BED IN LOWEST POSITION, SIDE RAILS UP X2, CALL LIGHT WITHIN REACH. WILL ENDORSE CARE TO ONCOMING NURSE.
--- NOTE | 2018-11-29 08:10 | NUR ---
AAO TIMES 4. TELE # 13 ST 107. LUNGS CTA. NO SOB. O2 SAT ON RA 99%. BS'S ACTIVE TIMES 4. BENJAMIN STRONG. IV SITE CDI. COOPERATIVE, DENIES SUICIDAL IDEATION. PERIPHERAL PULSES PALPABLE. NO EDEMA. NO C/O DISCOMFORT.
[2018-11-29 08:46] VITALS: BP 155/89
[2018-11-29] MEDS ORDERED: TRAZODONE100 MG PO (09:34)
--- NOTE | 2018-11-29 09:54 | NUR ---
REMOVED SALINE LOCK ANGIO INTACT, IV SITE CDI, NO SIGNS OF INFECTION. REMOVED TELE MONITOR AND PLACED IN TELE ROOM. GAVE HIM DISCHARGE INSTRUCTIONS AND PRESCRIPTION FOR [facility] AT . HE VERBALIZED "I UNDERSTAND" TO ALL INSTRUCTIONS. I WALKED HIM TO DISCHARGE OFFICE, SALOME LY IS WITH HIM.
== END 2018-11-29 09:51 | disposition home or self-care (01) | DRG 775 ==
LOC: ED 22:14 → DU 11-25 17:00
PROVIDERS: Emergency Medicine; ADMIT General Practice
DX: F10.229 Alcohol dependence with intoxication, unspecified (principal); R45.851 Suicidal ideations; K57.32 Diverticulitis of large intestine without perforation or abscess without bleeding; F32.9 Major depressive disorder, single episode, unspecified; I10 Essential (primary) hypertension; F43.10 Post-traumatic stress disorder, unspecified; F10.239 Alcohol dependence with withdrawal, unspecified; T51.0X1A Toxic effect of ethanol, accidental (unintentional), initial encounter; Y90.0 Blood alcohol level of less than 20 mg/100 ml; Z68.25 Body mass index [BMI] 25.0-25.9, adult
CPT/HCPCS: 83880; 84439; G0378; G0480; J2060; J2270; J2405; J2560; J7030; Q0092; Q0162

== ENCOUNTER 2018-12-09 15:04 | Inpatient (IN) | payer MEDICAID ==
[~2018-12-09] VITALS: Ht 182.9 cm; Wt 90.4 kg
[~2018-12-09 15:04] MED LIST changes: +BACLOFEN10 MG PO; +CEL100 PO; +CYMBALTA20 M1 PO
--- NOTE | 2018-12-09 15:36 | NUR ---
PT IS ALERT AND ORIENTED AND REPORTING HE HAS BEEN HAVING GENERALIZED ABD PAIN FOR THE PAST 4 DAYS. HE HAS BEEN DRINKING ALCOHOL FOR THE PAST 4 DAYS TO NUMB THE PAIN PER PT. PT WAS FOUND CALM AND COOPERATIVE AT THE [facility] WHERE HE HAS BEEN STAYING FOR "A WHILE" AND STAFF ASKED TO ENTER THE ROOM TO CLEAN IT AND FOUND THE PATIENT EMOTIONAL AND ETOH. THEY CALLED PD FOR A WELFARE CHECK AND PER MEDICS THE PATIENT TOLD PD PRIOR TO THEIR ARRIVAL THAT HE WANTED TO TRY AND KILL HIMSELF BY HANGING WITH A BELT. PT DENIED TAKING ANY PILLS TO MEDICS AND PT ONLY STATING " I WANTED TO HANG MYSELF EARLIER BUT I HAVENT TAKEN ANY MEDICATION SINCE THE WHEN YOUR DOCTORS TOLD ME TO STOP TAKING ALL MY MEDICATION AND NOW I FEEL WORSE." PT REPORTS HE DID NOT TRY TO HANG HIMSELF TODAY BUT HAS BEEN HAVING THOUGHTS OF IT. PT IS IN VIEW OF NURSES STATION, EMOTIONAL, ANSWERING ALL QUESTIONS APPROPRIATELY. LAB ATTEMPTING TO DRAW BLOOD
--- NOTE | 2018-12-09 15:41 | NUR ---
LAB AT BEDSIDE
--- NOTE | 2018-12-09 16:04 | NUR ---
BELONGINGS LEFT IN THE ORTHO/SUPPLY ROOM. 3 BAGS OF BELONGINGS
[2018-12-09 16:32] LABS: BASOPHIL % 0.6 % (0-2); PLATELET COUNT 314 x10^3mcL (130-400)
[2018-12-09 16:35] LABS: CALCIUM 7.8 mg/dL (8.5-10.1); CARBON DIOXIDE 26.9 mmol/L (21-32); CHLORIDE SERUM 104 mmol/L (98-107); CREATININE SERUM 0.8 mg/dL (0.7-1.3); GFR1 > 60 mL/min; GLUCOSE SERUM 105 mg/dL (74-106); POTASSIUM SERUM 3.7 mmol/L (3.5-5.1); SODIUM SERUM 142 mmol/L (136-145)
--- NOTE | 2018-12-09 16:42 | NUR ---
PT ATTEMPTED TO GIVE URINE SAMPLE USING URINAL AT BEDSIDE AND UNABLE TO PROVIDE ONE AT THIS TIME.
[2018-12-09 16:48] LABS: ALBUMIN 3.6 g/dL (3.4-5.0); ALKALINE PHOSPHATASE 64 U/L (46-116); ALT/SGPT 11 U/L (16-63); AST/SGOT 11 U/L (15-37); BILIRUBIN TOTAL 0.34 mg/dL (0.20-1.00); T4(THYROXINE) 6.5 ug/dL (4.7-13.3); TOTAL PROTEIN, SERUM 7.7 g/dL (6.4-8.2)
[2018-12-09 17:38] LABS: AMPHETAMINE QUAL UR NONE DETECTED (See below)
[2018-12-09 17:59] LABS: UA SPECIFIC GRAVITY 1.015 (1.005-1.035); microscopic required? YES; urine erythrocyte NEGATIVE (NEGATIVE)
--- NOTE | 2018-12-09 19:25 | NUR ---
PT MEDICATED PER MD ORDER. VITAL SIGNS STABLE RESPIRATIONS EVEN AND UNLABORED. NO ACUTE DISTRESS NOTED.
--- NOTE | 2018-12-09 20:52 | NUR ---
PT SLEEPING. VITAL SIGNS STABLE. RESPIRATIONS EVEN AND UNLABORED. NO ACUTE DISTRESS NOTED.
--- NOTE | 2018-12-09 22:03 | NUR ---
PT SLEEPING. VITAL SIGNS STABLE. RESPIRATIONS EVEN AND UNLABORED. NO ACUTE DISTRESS NOTED
--- NOTE | 2018-12-09 23:28 | NUR ---
PT SLEEPING. VITAL SIGNS STABLE. RESPIRATIONS EVEN AND UNLABORED. NO ACUTE DISTRESS NOTED.
--- NOTE | 2018-12-10 02:27 | NUR ---
MEDICATED PT WITH ADIVAN PO, PT STATED VERBAL UNDERSTANDING OF MEDICATION TEACHING. GAVE PT ANOTHER BLANKET PER PT REQUEST. WILL CONT TO MONITOR, PT IN VIEW OF NURSE STATION.
--- NOTE | 2018-12-10 05:26 | NUR ---
PT STATED THAT HE WAS FELLING VERY SHAKEY AND NEEDED ANOTHER ATIVAN. MD MADE AWARE AND PT WAS MEDICATED PER MD ORDER. VITAL SIGNS STABLE. RESPIRATIONS EVEN AND UNLABORED. NO ACUTE DISTRESS NOTED.
--- NOTE | 2018-12-10 07:30 | NUR ---
AWAKE ALERT ORIENTED, COOPERATIVE STATED DIVERTICULITIS FALRRING AND FEELS NAUSEA, ABDOMEN SOFT ACTIVE BOWEL SOUNDS,RESP. EASY BREATH SOUNDS CLEAR,,SKIN WARM AND DRY TO TOUCH,
--- NOTE | 2018-12-10 08:15 | NUR ---
STATES HAVING TREMERS IN EATREMITIES, WILL MEDICATE
--- NOTE | 2018-12-10 08:30 | NUR ---
Receieved report from night. Will continue to look for placement.
--- NOTE | 2018-12-10 10:33 | NUR ---
FEELS BETTER.WALLET GIVEN TO PT, PT CHECKED IT, MONEY CORRECT,CARDS IN WALLET,
--- NOTE | 2018-12-10 13:14 | NUR ---
HAVING TREMWES MEDICATED WITH ATIVAN
--- NOTE | 2018-12-10 14:55 | NUR ---
FOOD TRAY GIVEN
--- NOTE | 2018-12-10 14:56 | NUR ---
Call Center contacted [facility] and is aware that patient being admitted and not medically clear at this time. Please contact the Call Center if and when ready for psych placement assitance. [phone]. Thank you
--- NOTE | 2018-12-10 18:06 | NUR ---
WAITING ADMISSION, COOPERATIVE ,HAS OCCASIONAL TREMERS,ALCOHOL WITHDRAWAL,,MEDICATED WITH ATIVAN
--- NOTE | 2018-12-10 19:05 | NUR ---
PT REPORT RECEIVED FROM REGINA RN TO ASSUME PT CARE. PT RESTING IN A POSITION OF COMFORT AOX4, RESP EVEN AND UNLABORED, NO ACUTE DISTRESS NOTED. PT REMAINS ON FULL CM IN VIEW OF NURSE'S STATION.
--- NOTE | 2018-12-10 19:53 | NUR ---
PT REPORT CALLED TO AJAY LY TO ASSUME PT CARE.
--- NOTE | 2018-12-10 20:00 | NUR ---
PT TRANSFERRED TO [facility]B BY [facility] BY LEA LY AND ZOFIA EMT. PT ON FULL CM FOR TRANSFER. PT ACCEPTED BY AJAY LY TO ASSUME PT CARE, SITTER ALSO PRESENT FOR PT SAFETY. PT AOX4, RESP EVEN AND UNLABORED, NO ACUTE DISTRESS NOTED. PT AMBULATED FROM [facility] TO BED WITHOUT INCIDENT.
--- NOTE | 2018-12-10 20:05 | NUR ---
RECEIVED PT FROM ED VIA FREDY, PT IS AAOX4, C/O HEADACHE. ABLE TO FOLLOW SIMPLE COMMANDS. NO SOB NOTED, LUNG SOUNDS CTA, O2 SAT=98%, RA. DENIES CHEST PAIN/PRESSURE, SINUS TACHYCARDIA ON THE MONITOR, HR AT 119. C/O 7/10 LEFT LOWER ABDOMINAL PAIN DESCRIBED SHARP AND STABBING. ABDOMEN IS SOFT. DENIES NAUSEA/VOMITING. LAST BM YESTERDAY. VOIDS. IV SITE ON THE LEFT FOOT GAUGE 22 IS PATENT AND INTACT. PT DENIES SUICIDAL IDEATION AT THIS TIME. COOPERATIVE TO CARE. C/O ANXIETY AND TREMORS ON BUE. C/O ITCHINESS ON BLE. PADDED SIDE RAILS UPX2. CALL LIGHT ON REACH. CZ=[phone]. ENDORSED TO PRIMARY NURSE AJAY FOR CONTINUITY OF CARE
[2018-12-10 20:46] VITALS: BP 168/105
[2018-12-10 20:59] VITALS: Ht 182.9 cm; Wt 90.4 kg
--- NOTE | 2018-12-10 21:15 | NUR ---
PT C/O PAIN ON HIS LOWER ABDOMEN 10/13 AND AXIETY. MEDICATED NORCO 5/325 MG PO FOR PAIN AND ATIVAN 1MG IV FOR ANXIETY ORDERED. WILL CONTINUE TO MONITOR.
--- NOTE | 2018-12-11 05:10 | NUR ---
PT APPEARS TO BE SLEEPING. NO SIGNS OF SUICIDAL IDEATION. IVF INFUSING WELL. BED IN LOWEST POSITION,SIDERAILS UP. SITTER AT BEDSIDE FOR SAFETY. WILL CONTINUE TO MONITOR.
--- NOTE | 2018-12-11 05:26 | NUR ---
PT C/O ANXIETY. MEDICATED ATIVAN 1MG IV ORDERED. WILL CONTINUE TO MONITOR.
[2018-12-11 05:33] VITALS: BP 139/95
[2018-12-11 05:35] LABS: PLATELET COUNT 248 x10^3mcL (130-400); RED CELL DISTRIBUTION WIDTH 12.9 % (11.5-14.5)
[2018-12-11 06:19] LABS: CALCIUM 8.5 mg/dL (8.5-10.1); CARBON DIOXIDE 29.8 mmol/L (21-32); CHLORIDE SERUM 106 mmol/L (98-107); CREATININE SERUM 0.7 mg/dL (0.7-1.3); GFR1 > 60 mL/min; GLUCOSE SERUM 97 mg/dL (74-106); POTASSIUM SERUM 3.6 mmol/L (3.5-5.1); SODIUM SERUM 144 mmol/L (136-145)
--- NOTE | 2018-12-11 07:25 | NUR ---
CARE ENDORSED TO DAY NURSE CHASITY.
--- NOTE | 2018-12-11 07:43 | NUR ---
A+OX4, NO RESPRIATORY DISTRESS NOTED, SZ PRECAUTIONS, TELE 14, PULSES MODERATE AND EQUAL VALERIANO, NO EDEMA NOTED, LUNG SOUNDS CTA, TOLERATING RA, BOWEL SOUNDS ACTIVE, VOIDING FREELY, TREMORS BUE, SKIN INTACT, IV IN L FOOT WITH D5NS @ 80 ML/HR, SITE WNL.
--- NOTE | 2018-12-11 08:42 | NUR ---
PT RESTING IN BED, NO RESPRIATORY DISTRESS NOTED, COMPLAINING OF ABD PAIN BUT STATES PAIN IS TOLERABLE AT THIS TIME, OFFERED PT PAIN MEDS AND HE DECLINED, SITTER AT BEDSIDE, CALM AT THIS TIME, CALL LIGHT WITHIN REACH.
--- NOTE | 2018-12-11 10:50 | NUR ---
PT COMPLAINING OF ANXIETYM, REQUESTING ATIVAN IVP, ATIVAN IVP GIVEN, NO RESPIRATORY DISTRESS NOTED, SITTER AT BEDSIDE, CALL LIGHT WITHIN REACH.
--- NOTE | 2018-12-11 11:14 | NUR ---
P.T. NOTES P.T. EVAL COMPLETED; NURSING TO [facility].
--- NOTE | 2018-12-11 11:36 | NUR ---
PT COMPLAINING OF 8/10 ABD PAIN, REQUESTING NORCO, NORCO PO GIVEN, NO RESPRIATORY DISTRESS NOTED, SITTER AT BEDSIDE, CALL LIGHT WITHIN REACH.
[2018-12-11 13:09] VITALS: BP 145/91
--- NOTE | 2018-12-11 13:27 | NUR ---
PT RESTING IN BED, NO RESPIRATORY DISTRESS NOTED, DENIES PAIN, SITTER AT BEDSIDE, CALL LIGHT WITHIN REACH.
--- NOTE | 2018-12-11 14:24 | NUR ---
PT RESTING IN BED, NO RESPIRATORY DISTRESS NOTED, COMPLAINING OF ANXIETY AND TREMORS, REQUESTING ATIVAN IVP, ATIVAN IVP GIVEN, SITTER AT BEDSIDE, CALL LIGHT WITHIN REACH.
--- NOTE | 2018-12-11 16:46 | NUR ---
PT RESTING IN BED, NO RESPIRATORY DISTRESS NOTED, SITTER AT BEDSIDE, CALL LIGHT WITHIN REACH.
--- NOTE | 2018-12-11 17:38 | NUR ---
PT COMPLAINING OF 8/10 ABD PAIN, NORCO PO GIVEN, NO RESPRIATORY DISTRESS NOTED, CALL LIGHT WITHIN REACH.
[2018-12-11 18:10] VITALS: BP 153/96
--- NOTE | 2018-12-11 18:43 | NUR ---
PT COMPLAINING OF ANXIETY, REQUESTING ATIVAN IVP, ATIVAN IVP GIVEN, NO RESPRIATORY DISTRESS NOTED, CALL LIGHT WITHIN REACH. SITTER AT BEDSIDE.
--- NOTE | 2018-12-11 19:05 | NUR ---
PT RECEIVED FROM AM NURSE. PT A/O X4, ABLE TO MAKE NEEDS KNOWN, SEIZURE PRECAUTIONS IN PLACE. TELE #14, DENIES ANY CP/RPESSURE. PULSES PALPABLE, NO EDEMA PRESENT. BREATHING IS EVEN AND UNLABORED, NO RESP DISTRESS NOTED. ABD SOFT AND NONDISTENDED, PT DENIES ANY N/V. VOIDS FREELY, BRP. PT AMBULATES INDEPENDENTLY, MILD BUE TREMORS NOTED. SKIN IS WARM AND DRY, INTACT. PT DENIES HAVING ANY PAIN AT THIS TIME. IVF INFUSING WELL TO LEFT FOOT, PATENT AND INTACT, SITE IS FREE FROM REDNESS OR SWELLING. NO ACUTE DISTRESS NOTED. SITTER AT BEDSIDE. BED IN LOWEST SETTING, SIDE RAILS UP X2, CALL LIGHT WITHIN REACH. WILL CONT TO MONITOR.
--- NOTE | 2018-12-11 19:22 | NUR ---
ENDORSED CARE TO CHRISSY LY.
[2018-12-11 19:50] VITALS: BP 151/95
--- NOTE | 2018-12-11 19:51 | NUR ---
PT C/O NAUSEA, PRN ZOFRAN IVP GIVEN ORDERED. EMESIS BAG PROVIDED. NO VOMITING NOTED AT THIS TIME. NO ACUTE DISTRESS OBSERVED. SITTER AT BEDSIDE. WILL CONT TO MONITOR.
--- NOTE | 2018-12-11 22:14 | NUR ---
PT C/O ANXIETY, PRN ATIVAN IVP GIVEN ORDERED. NO ACUTE DISTRESS NOTED. SITTER AT BEDSIDE. WILL CONT TO MONITOR.
--- NOTE | 2018-12-12 00:29 | NUR ---
PT RESTING IN BED WITH EYES CLOSED, BUT IS EASILY AROUSABLE. BREATHING IS EVEN AND UNLABORED, NO RESP DISTRESS NOTED. NO S/S OF PAIN OBSERVED. IVF INFUSING WELL, SITE WNL. NO ACUTE DISTRESS NOTED. CALL LIGHT WITHIN REACH. SITTER AT BEDSIDE. WILL CONT TO MONITOR.
[2018-12-12 05:41] VITALS: BP 155/92
--- NOTE | 2018-12-12 06:15 | NUR ---
PT C/O 10/13 ABD PAIN, PT REQUESTING NORCO. PRN NORCO GIVEN PER EMAR. SITTER AT BEDSIDE. WILL CONT TO MONITOR.
[2018-12-12 06:16] LABS: BASOPHIL % 0.6 % (0-2); PLATELET COUNT 188 x10^3mcL (130-400); RED CELL DISTRIBUTION WIDTH 13.4 % (11.5-14.5)
[2018-12-12 06:45] LABS: CARBON DIOXIDE 26.6 mmol/L (21-32); CHLORIDE SERUM 109 mmol/L (98-107); CREATININE SERUM 0.6 mg/dL (0.7-1.3); GFR1 > 60 mL/min; GLUCOSE SERUM 91 mg/dL (74-106); MAGNESIUM 2.1 mg/dL (1.8-2.4); SODIUM SERUM 143 mmol/L (136-145)
--- NOTE | 2018-12-12 06:56 | NUR ---
PT C/O ANXIETY, PRN ATIVAN IVP GIVEN ORDERED. NO ACUTE DISTRESS NOTED. WILL CONT TO MONITOR.
--- NOTE | 2018-12-12 07:13 | NUR ---
REPORT TAKEN FROM ROLL FORMING MACHINE SET UP OPERATOR NURSE, PT OBSEVERED TO BE AWAKE AND ALERT X 4, DENIED PAIN OR NEEDS AT THIS TIME, SITTER AT THE BEDSIDE DUE TO 5150 HOLD, WILL CONTINUE TO MONITOR.
--- NOTE | 2018-12-12 07:25 | NUR ---
PT IN NO ACUTE DISTRESS. CONTINUITY OF CARE ENDORSED TO STANFORD LY. ALL QUESTIONS AND CONCERNS ADDRESSED.
[2018-12-12 07:43] VITALS: BP 142/92
--- NOTE | 2018-12-12 09:08 | NUR ---
PATIENT RESTING COMFORTABLY AT THIS TIME, TOOK MORNING MEDICAITON WITHOUT ISSUE, SITTER AT THE BEDSIDE, PT DENIED PAIN OR NEEDS, WILL CONTINUE TO MONITOR.
[2018-12-12 13:19] VITALS: BP 151/93
[2018-12-12 18:26] VITALS: BP 146/91
--- NOTE | 2018-12-12 19:31 | NUR ---
REPORT GIVEN TO WASTE MANAGEMENT RECYCLING TECHNICIAN NURSE, CARE ENDORSED
--- NOTE | 2018-12-12 19:35 | NUR ---
RECEIVED PT FROM AM NURSE. PT AAOX4, ABLE TO MAKE NEEDS KNWON. DENIES H/A, DIZZINESS. ON SZ PREACAUTIONS. TELE# 14 READING SR, HR 90. DENIES CP/PRESSURE AT THIS TIME. PALPABLE PULSES TO ALL EXTREMETIES. NO EDEMA NOTED. LUNG SOUNDS CTA ON RA. BREATHING EVEN AND UNLABORED ON RA. NO ACUTE DISTRESS NOTED. NO SOB NOTED. ABD SOFT AND NONDISTENDED, LAST BM 12/12. DENIES N/V/D. C/O ABD PAIN 07/14. WILL MEDICATE ACCORDINGLY. VOIDS FREELY BRP.C/O INTERMITTENT TREMORS TO BUE. AMBULATORY. DENIES SUICIDAL IDEATION AT THIS TIME. IV TO LEFT FOOT. IV LEAKING. MILD REDNESS AND SWELLING TO SITE. WILL INSERT NEW IV. STAFF AT BEDSIDE. BED AT LOWEST SETTING. SIDE RAILS X2 UP. CALL LIGHT WITHING REACH. WILL CONTINUE TO MONITOR.
[2018-12-12 19:45] VITALS: BP 152/102
--- NOTE | 2018-12-12 22:00 | NUR ---
PT C/O ANXIETY, MEDICATED WITH PRN ATIVAN PER MAR. WILL CONTINUE TO MONITOR.
--- NOTE | 2018-12-13 00:12 | NUR ---
PT LAYING DOWN IN BED WITH EYES CLOSED. BREATHING EVEN AND UNLABORED ON RA. ELISA PEARCE DISTRESS NOTED. STAFF AT BEDSIDE. BED AT LOWEST SETTING. SIDE RAILS X2 UP. CALL LIGHT WITHING REACH. WILL CONTINUE TO MONITOR.
--- NOTE | 2018-12-13 05:16 | NUR ---
PT C/O ANXIETY, HAVING TREMORS TO BUE. MEDICATED WITH PRN ATIVAN PER MAR. WILL CONTINUE TO MONITOR.
[2018-12-13 05:18] VITALS: BP 133/85
--- NOTE | 2018-12-13 05:21 | NUR ---
At this time no placement was found , will endorsed to AM shift to continue to look for placement, charge nurse Radha LY made aware.
--- NOTE | 2018-12-13 06:22 | NUR ---
PT SLEPT AT INTERVALS THROGHOUT THE NIGHT. BREATHING EVEN AND UNLABORED ON RA. NO ACUTE DISTRESS NOTED. NO SIGNIFICANT CHANGE DURING SHIFT. ALL NEEDS ASSESSED AND ATTENDED TO. BED AT LOWEST SETTING. SIDE RAILS X2 UP. STAFF AT BEDSIDE. CALL LIGHT WITHING REACH, WILL ENDORSE CARE TO AM NURE.
[2018-12-13 06:36] LABS: CALCIUM 8.1 mg/dL (8.5-10.1); CARBON DIOXIDE 24.5 mmol/L (21-32); CHLORIDE SERUM 107 mmol/L (98-107); CREATININE SERUM 0.6 mg/dL (0.7-1.3); GFR1 > 60 mL/min; GLUCOSE SERUM 93 mg/dL (74-106); MAGNESIUM 2.2 mg/dL (1.8-2.4); POTASSIUM SERUM 3.9 mmol/L (3.5-5.1); SODIUM SERUM 140 mmol/L (136-145)
--- NOTE | 2018-12-13 07:10 | NUR ---
RECEIVED BEDSIDE REPORT FROM BLOWING WEASAND NURSE AT THIS TIME. PATIENT RESTING COMFORTABLY IN BED. NO APPARARENT DISTRESS OR DISCOMFORT NOTED. BREATHING EVEN AND UNLABORED. NO RESPIRATORY DISTRESS OR DISCOMFORT NOTED. PATIENT DENIES SHORTNESS OF BREATH. PATIENT DENIES CHEST PAIN/PRESSURE. IV PATENT AND INTACT TO LEFT HAND. ALL QUESTIONS AND CONCERNS ADDRESSED. ALL NEEDS ATTENDED TO. WILL CONTINUE TO MONITOR
[2018-12-13 08:50] VITALS: BP 136/92
--- NOTE | 2018-12-13 09:13 | NUR ---
PATIENT C/O ANXIETY AT THIS TIME. PATIENT MEDICATED WITH ATIVAN 1MG PRN. PATIENT TOLERATED WELL. NO APPARENT ADVERSE EFFECTS NOTED. ALL NEEDS ATTENDED TO. WILL CONTINUE TO MONITOR
--- NOTE | 2018-12-13 10:00 | NUR ---
ALL MORNING MEDICATIONS ADMINISTERED AT THIS TIME. PATIENT TOLERATED WELL. NO APPARENT ADVERSE EFFECTS NOTED. ALL NEEDS ATTENDED TO. WILL CONTINUE TO MONITOR
--- NOTE | 2018-12-13 11:37 | NUR ---
PATIENT C/O ABD PAIN AT THIS TIME. PATIENT MEDICATED WITH NORCO PO PRN. PATIENT TOLERATED WELL. NO APPARENT ADVERSE EFFECTS NOTED. ALL NEEDS ATTENDED TO. WILL CONTINUE TO MONITOR
--- NOTE | 2018-12-13 12:30 | NUR ---
Called the following facilities [facility] s/w radha no beds packet fax for wait list [facility] s/w [place] no beds, packet fax for wait list [facility] s/w Beth no beds [facility] s/w [facility] no beds [facility] s/w Leigh packet fax for review [facility] s/w Vahe no beds [facility] s/w Joselyn no beds [facility] s/w Harry no beds
--- NOTE | 2018-12-13 12:53 | NUR ---
S/W shan (JIMMY) on Tele. Stated that psych MD has not been by to re-eval patient. Will fax new [phone] if patient meets criteria
--- NOTE | 2018-12-13 13:12 | NUR ---
PATIENT SITTING UP IN BED EATING LUNCH AT THIS TIME. PATIENT TOLERATING DIET WELL. NO APPARENT DISTRESS OR DISCOMFORT NOTED. WILL CONTINUE TO MONITOR
[2018-12-13 13:33] VITALS: BP 149/87
--- NOTE | 2018-12-13 17:38 | NUR ---
PATIENT C/O ANXIETY AT THIS TIME. PATIENT MEDICATED WITH ATIVAN IVP PRN AT THIS TIME. PATIENT TOLERATED MEDICATION WELL. NO APPARENT ADVERSE EFFECT NOTED. ALL NEEDS ATTENDED TO. WILL CONTINUE TO MONITOR
[2018-12-13 17:40] VITALS: BP 177/113
[2018-12-13 18:47] VITALS: BP 151/103
--- NOTE | 2018-12-13 18:54 | NUR ---
PATIENT RESTING COMFORTABLY IN BED AT THIS TIME. NO APPARENT DISTRESS OR DISCOMFORT NOTED. NEW IV TO LEFT FOREARM. IV PATENT AND INTACT. ALL QUESTIONS AND CONCERNS ADDRESSED. ALL NEEDS ATTENDED TO. SAFETY PRECAUTIONS MAINTAINED. WILL ENDORSE ALL CARE TO [employer] SUPERVISOR NURSE
--- NOTE | 2018-12-13 19:44 | NUR ---
PT RECIEVED SITTING ON HIS BED AAO REG RESP NO SOB,WAITING FOR THE DR JASON TO BE D/C PER THE PATIENT,PT HAS A SITTER AT THE BEDSIDE,HL TO THE HAND WITH THE SITE PATENT AND INTACT,BED IN TE LOW POSITION AND LOCKED,KEPT CLEAN AND DRY TO TOUCH,MADE COMFORTABLE IN BED AND WILL CONTINUE TO MONITOR.
[2018-12-13 20:37] VITALS: BP 150/101
--- NOTE | 2018-12-14 01:02 | NUR ---
pt sleeping soundly at this time,will continue to monitor.
[2018-12-14 05:46] VITALS: BP 129/87
--- NOTE | 2018-12-14 06:30 | NUR ---
PT HAD A RESTING NIGHT NO CHANGE AT THIS TIME WILL CONTINUE TO MONITOR.
--- NOTE | 2018-12-14 07:35 | NUR ---
RECEIVED PT FROM STOCK SORTER. PT AWAKE, ALERT A/OX4. PT ON ROOM AIR WITH NO RESP DISTRESS NOTED. IV ACCESS LFA, CDI, SALINE LOCKED. PERIPHERAL PULSES PALPABLE, NO EDEMA NOTED. ACTIVE BS NOTED. NO APPARENT ISSUES WITH ELIMINATION. PT DENIES PAIN AT THIS TIME. PT REPORTS PREVIOUSLY MEDICATED FOR ABDOMINAL PAIN RELATED TO SCAR TISSUE FROM PREVIOUS DIVERTICULITIS WITH PERFORATION. TOLERABLE AT THIS TIME. PT DENIES ANY SUICIDAL IDEATION AT THIS TIME. PT REPORTS HAVING PTSD AND MIXING MEDS WITH BEER CAUSED HIS "BRAIN TO SCRAMBLE". PT REPORTS LOOKING FORWARD TO DISCHARGE STATES HE HAS MANY THINGS TO DO. PT CALM AND COOPERATIVE WITH NO ACUTE DISTRESS NOTED AT THIS TIME. SITTER AT BEDSIDE. SAFETY MEASURES IN PLACE, BED LOW AND LOCKED. CALL LIGHT WITHIN REACH.
--- NOTE | 2018-12-14 08:38 | NUR ---
Received report from third shift lieutenant. Will continue to follow patient.
[2018-12-14 09:29] VITALS: BP 129/87
--- NOTE | 2018-12-14 09:33 | NUR ---
PT COMPLAINING OF PAIN IN ABDOMEN 10/13. ASKING FOR NORCO. MED ADMINISTERED ORDERED PRN (SEE EMAR). PT CALM AND COOPERATIVE AT THIS TIME. WILL CONTINUE TO MONITOR.
--- NOTE | 2018-12-14 10:34 | NUR ---
PT REPORTS PAIN 6/10 WHICH IS TOLERABLE FOR HIM. NO ACUTE DISTRESS OR DISCOMFORT NOTED AT THIS TIME.
--- NOTE | 2018-12-14 10:56 | NUR ---
Patient waiting for re-eval for possible DC.
--- NOTE | 2018-12-14 11:13 | NUR ---
PT COMPLAINING OF ANXIETY. ATIVAN ADMINISTERED ORDERED PRN (SEE EMAR). WILL CONTINUE TO MONITOR.
[2018-12-14 14:12] VITALS: BP 126/86
--- NOTE | 2018-12-14 14:18 | NUR ---
DUE MEDS ADMINISTERED, PT TOLERATED WELL (SEE EMAR). PT WAITING FOR DR BROWN TO BE CLEARED FOR DISCHARGE. NO DISTRESS NOTED AT THIS TIME. PT CALM AND COOPERATIVE.
[2018-12-14 16:06] VITALS: BP 126/86
--- NOTE | 2018-12-14 17:25 | NUR ---
DISCHARGE INSTRUCTIONS/EDUCATION PROVIDED TO PATIENT. PT TO FOLLOW UP WITH DR BROWN. PT VERBALIZED UNDERSTANDING. IV ACCESS REMOVED WITH CATHETER INTACT. NO BLEEDING OR REDNESS NOTED. PT TO BE TAKEN BY WHEELCHAIR TO [facility]IVATE [facility] FOR DISCHARGE. PT CALM AND COOPERATIVE. SAFETY MAINTAINED.
== END 2018-12-14 17:54 | disposition home or self-care (01) | DRG 812 ==
LOC: ED 15:04 → DU 12-10 14:05
PROVIDERS: Emergency Medicine; ADMIT Internal Medicine
DX: T45.0X2A Poisoning by antiallergic and antiemetic drugs, intentional self-harm, initial encounter (principal); R45.851 Suicidal ideations; F43.10 Post-traumatic stress disorder, unspecified; F32.9 Major depressive disorder, single episode, unspecified; F10.239 Alcohol dependence with withdrawal, unspecified; T51.0X2A Toxic effect of ethanol, intentional self-harm, initial encounter; Y90.0 Blood alcohol level of less than 20 mg/100 ml; Y92.018 Other place in single-family (private) house as the place of occurrence of the external cause; Z68.27 Body mass index [BMI] 27.0-27.9, adult
CPT/HCPCS: G0378; G0480; J2060; J2405; J7042

== ENCOUNTER 2019-01-09 00:45 | Emergency (ER) | payer MEDICAID ==
[~2019-01-09] VITALS: Ht 182.9 cm; Wt 90.7 kg
[2019-01-09 00:55] VITALS: Ht 182.9 cm; Wt 90.7 kg
[2019-01-09 01:30] LABS: microscopic required? NO
[2019-01-09 01:37] LABS: BASOPHIL % 0.8 % (0-2); PLATELET COUNT 313 x10^3mcL (130-400); RED CELL DISTRIBUTION WIDTH 13.9 % (11.5-14.5)
[2019-01-09 01:44] LABS: UA SPECIFIC GRAVITY <=1.005 (1.005-1.035); urine erythrocyte NEGATIVE (NEGATIVE)
[2019-01-09 01:48] LABS: AMPHETAMINE QUAL UR NONE DETECTED (See below)
[2019-01-09 01:51] LABS: CALCIUM 8.6 mg/dL (8.5-10.1); CARBON DIOXIDE 31.4 mmol/L (21-32); CHLORIDE SERUM 104 mmol/L (98-107); CREATININE SERUM 0.9 mg/dL (0.7-1.3); GFR1 > 60 mL/min; GLUCOSE SERUM 109 mg/dL (74-106); POTASSIUM SERUM 3.7 mmol/L (3.5-5.1); SODIUM SERUM 146 mmol/L (136-145)
[2019-01-09 01:58] LABS: ALBUMIN 4.1 g/dL (3.4-5.0); ALKALINE PHOSPHATASE 67 U/L (46-116); ALT/SGPT 19 U/L (16-63); AST/SGOT 22 U/L (15-37); BILIRUBIN TOTAL 0.4 mg/dL (0.20-1.00); TOTAL PROTEIN, SERUM 8.2 g/dL (6.4-8.2)
[2019-01-09 08:34] VITALS: BP 141/93
== END 2019-01-09 08:34 | disposition home or self-care (01) ==
LOC: ED 00:45
PROVIDERS: Emergency Medicine
DX: F10.239 Alcohol dependence with withdrawal, unspecified (principal); G89.29 Other chronic pain; F43.10 Post-traumatic stress disorder, unspecified; R10.32 Left lower quadrant pain; Z88.8 Allergy status to other drugs, medicaments and biological substances; Z88.6 Allergy status to analgesic agent
CPT/HCPCS: 36415; 87804; G0480

== ENCOUNTER 2019-01-14 22:36 | Emergency (ER) | payer MEDICAID ==
[2019-01-14 22:49] VITALS: BP 150/78
== END 2019-01-14 23:15 | disposition left against medical advice (07) ==
LOC: ED 22:36
DX: Z53.21 Procedure and treatment not carried out due to patient leaving prior to being seen by health care provider (principal)

== ENCOUNTER 2019-01-25 17:34 | Emergency (ER) | payer MEDICAID ==
[~2019-01-25] VITALS: Ht 177.8 cm; Wt 93.0 kg
[2019-01-25 17:41] VITALS: Ht 177.8 cm; Wt 93.0 kg
[2019-01-25 18:50] LABS: PLATELET COUNT 316 x10^3mcL (130-400)
[2019-01-25 18:51] LABS: BASOPHIL % 2.9 % (0-2); RED CELL DISTRIBUTION WIDTH 14.9 % (11.5-14.5)
[2019-01-25 18:56] LABS: CALCIUM 8.3 mg/dL (8.5-10.1); CARBON DIOXIDE 29.3 mmol/L (21-32); CHLORIDE SERUM 106 mmol/L (98-107); CREATININE SERUM 0.7 mg/dL (0.7-1.3); GFR1 > 60 mL/min; GLUCOSE SERUM 107 mg/dL (74-106); POTASSIUM SERUM 3.9 mmol/L (3.5-5.1); SODIUM SERUM 146 mmol/L (136-145)
[2019-01-25 19:04] VITALS: BP 132/90
[2019-01-25 19:04] LABS: ALBUMIN 3.8 g/dL (3.4-5.0); ALKALINE PHOSPHATASE 65 U/L (46-116); ALT/SGPT 20 U/L (16-63); AST/SGOT 24 U/L (15-37); BILIRUBIN TOTAL 0.2 mg/dL (0.20-1.00); LIPASE 150 IU/L (73-393); TOTAL PROTEIN, SERUM 7.8 g/dL (6.4-8.2)
== END 2019-01-25 20:15 | disposition left against medical advice (07) ==
LOC: ED 17:34
PROVIDERS: Emergency Medicine
DX: K57.90 Diverticulosis of intestine, part unspecified, without perforation or abscess without bleeding (principal); F10.129 Alcohol abuse with intoxication, unspecified; Z88.6 Allergy status to analgesic agent; Z88.8 Allergy status to other drugs, medicaments and biological substances; Y90.8 Blood alcohol level of 240 mg/100 ml or more
CPT/HCPCS: 36415; G0480

== ENCOUNTER 2019-01-26 00:54 | Emergency (ER) | payer MEDICAID ==
[~2019-01-26] VITALS: Ht 182.9 cm; Wt 93.0 kg
[2019-01-26 02:03] VITALS: BP 128/82; Ht 182.9 cm; Wt 93.0 kg
== END 2019-01-26 03:00 | disposition home or self-care (01) ==
LOC: ED 00:54
DX: F10.10 Alcohol abuse, uncomplicated (principal); R10.32 Left lower quadrant pain; Z88.6 Allergy status to analgesic agent; R45.1 Restlessness and agitation; Z88.8 Allergy status to other drugs, medicaments and biological substances

== ENCOUNTER 2019-02-11 15:04 | Inpatient (IN) | payer OTHER, MEDICAID ==
[~2019-02-11] VITALS: Ht 182.9 cm; Wt 90.3 kg
[2019-02-11 15:07] VITALS: Ht 182.9 cm; Wt 90.3 kg
[2019-02-11 16:37] LABS: PLATELET COUNT 279 x10^3mcL (130-400); RED CELL DISTRIBUTION WIDTH 14.3 % (11.5-14.5)
[2019-02-11 16:42] LABS: CALCIUM 8.7 mg/dL (8.5-10.1); CHLORIDE SERUM 102 mmol/L (98-107); CREATININE SERUM 0.5 mg/dL (0.7-1.3); GFR1 > 60 mL/min; GLUCOSE SERUM 82 mg/dL (74-106); POTASSIUM SERUM 4.4 mmol/L (3.5-5.1); SODIUM SERUM 139 mmol/L (136-145)
[2019-02-11 16:54] LABS: ALBUMIN 4.2 g/dL (3.4-5.0); ALKALINE PHOSPHATASE 70 U/L (46-116); ALT/SGPT 22 U/L (16-63); AST/SGOT 26 U/L (15-37); BILIRUBIN TOTAL 1.16 mg/dL (0.20-1.00); LIPASE 144 IU/L (73-393); MAGNESIUM 2.3 mg/dL (1.8-2.4); T4(THYROXINE) 6.9 ug/dL (4.7-13.3)
[2019-02-11 16:56] LABS: CHOLESTEROL 216 mg/dL (<200); HDL CHOLESTEROL 83 mg/dL (40-60); TOTAL PROTEIN, SERUM 8.4 g/dL (6.4-8.2)
[2019-02-11 16:57] LABS: BAND NEUTROPHIL 0 % (0-10); BASOPHIL 0 % (0-2); MONOCYTE 8 % (0-7); SEGMENTED NEUTROPHILS 71 % (37-75)
[2019-02-11 16:58] LABS: PLATELET MORPHOLOGY PLATELETS NORMAL; rbc morphology (normal/abnorm) NORMAL (NORMAL)
[2019-02-11 18:32] LABS: microscopic required? NO
[2019-02-11 18:39] LABS: UA SPECIFIC GRAVITY 1.025 (1.005-1.035); urine erythrocyte NEGATIVE (NEGATIVE)
[2019-02-11 18:46] LABS: AMPHETAMINE QUAL UR NONE DETECTED (See below)
[2019-02-12 14:36] LABS: PLATELET COUNT 269 x10^3mcL (130-400)
[2019-02-12 14:47] VITALS: BP 152/98
[2019-02-12 15:01] LABS: CALCIUM 8.5 mg/dL (8.5-10.1); CARBON DIOXIDE 26.3 mmol/L (21-32); CHLORIDE SERUM 103 mmol/L (98-107); CREATININE SERUM 0.6 mg/dL (0.7-1.3); GFR1 > 60 mL/min; GLUCOSE SERUM 100 mg/dL (74-106); POTASSIUM SERUM 4.3 mmol/L (3.5-5.1); SODIUM SERUM 136 mmol/L (136-145)
[2019-02-12 16:17] LABS: ATYPICAL LYMPH 1 %; BAND NEUTROPHIL 0 % (0-10); BASOPHIL 0 % (0-2); MONOCYTE 4 % (0-7); SEGMENTED NEUTROPHILS 31 % (37-75)
[2019-02-12 16:18] LABS: rbc morphology (normal/abnorm) NORMAL (NORMAL)
[2019-02-12 16:20] LABS: PLATELET MORPHOLOGY PLATELETS NORMAL
[2019-02-12 17:15] VITALS: BP 149/93
[2019-02-12 20:00] VITALS: BP 141/92
[2019-02-13 07:22] LABS: BASOPHIL % 1.5 % (0-2); PLATELET COUNT 243 x10^3mcL (130-400)
[2019-02-13 07:47] LABS: CALCIUM 8.1 mg/dL (8.5-10.1); CARBON DIOXIDE 25.7 mmol/L (21-32); CHLORIDE SERUM 102 mmol/L (98-107); CREATININE SERUM 0.6 mg/dL (0.7-1.3); GFR1 > 60 mL/min; GLUCOSE SERUM 85 mg/dL (74-106); MAGNESIUM 1.9 mg/dL (1.8-2.4); PHOSPHOROUS 2.9 mg/dL (2.5-4.9); SODIUM SERUM 139 mmol/L (136-145)
[2019-02-13 07:57] VITALS: BP 153/402
[2019-02-13 12:03] VITALS: BP 124/84
[2019-02-13 17:26] VITALS: BP 135/98
[2019-02-13 21:26] VITALS: BP 132/88
[2019-02-14 05:14] VITALS: BP 117/75
[2019-02-14 07:15] LABS: CALCIUM 8.9 mg/dL (8.5-10.1); CARBON DIOXIDE 24.9 mmol/L (21-32); CHLORIDE SERUM 104 mmol/L (98-107); CREATININE SERUM 0.6 mg/dL (0.7-1.3); GFR1 > 60 mL/min; GLUCOSE SERUM 89 mg/dL (74-106); MAGNESIUM 2.3 mg/dL (1.8-2.4); PHOSPHOROUS 4.6 mg/dL (2.5-4.9); POTASSIUM SERUM 3.7 mmol/L (3.5-5.1); SODIUM SERUM 140 mmol/L (136-145)
[2019-02-14 07:32] LABS: BASOPHIL % 0.4 % (0-2); PLATELET COUNT 231 x10^3mcL (130-400); RED CELL DISTRIBUTION WIDTH 13.9 % (11.5-14.5)
[2019-02-14 08:34] VITALS: BP 120/74
[2019-02-14 20:27] VITALS: BP 119/77
[2019-02-15 05:03] VITALS: BP 97/62
[2019-02-15 07:17] LABS: BASOPHIL % 0.4 % (0-2); PLATELET COUNT 237 x10^3mcL (130-400)
[2019-02-15 07:36] LABS: CALCIUM 8.7 mg/dL (8.5-10.1); CHLORIDE SERUM 105 mmol/L (98-107); CREATININE SERUM 0.7 mg/dL (0.7-1.3); GFR1 > 60 mL/min; GLUCOSE SERUM 85 mg/dL (74-106); MAGNESIUM 2.1 mg/dL (1.8-2.4); PHOSPHOROUS 4.5 mg/dL (2.5-4.9); POTASSIUM SERUM 3.8 mmol/L (3.5-5.1); SODIUM SERUM 139 mmol/L (136-145)
[2019-02-15 09:44] VITALS: BP 117/76
[2019-02-15 15:30] VITALS: BP 124/86
[2019-02-15 20:50] VITALS: BP 132/80
[2019-02-16 05:45] VITALS: BP 120/79
[2019-02-16] MEDS ORDERED: CLONIDINE HCL0.2 MG PO (08:33)
[2019-02-16] MEDS ORDERED: ASPIR 8181 MG PO (08:34)
[2019-02-16] MEDS ORDERED: ZESTRIL20 MG PO (08:35)
[2019-02-16] MEDS ORDERED: NIT0.4 SL (08:35)
[2019-02-16] MEDS ORDERED: COREG12.5 MG PO (08:37)
[2019-02-16 08:48] VITALS: BP 127/83
[2019-02-16 12:08] VITALS: BP 127/83
[2019-02-16 16:39] VITALS: BP 124/83
[2019-02-16 19:30] VITALS: BP 136/89
[2019-02-17 04:38] VITALS: BP 119/75
[2019-02-17 09:15] VITALS: BP 116/69
[2019-02-17 16:11] VITALS: BP 119/75
[2019-02-17 17:59] VITALS: BP 127/83
== END 2019-02-17 18:57 | DRG 897 ==
LOC: ED 15:04 → DU 02-12 13:16 → MU 02-12 13:16 → DU 02-12 20:42 → MU 02-14 09:44 → DU 02-14 10:05 → MU 02-17 18:57
PROVIDERS: Emergency Medicine; ADMIT Internal Medicine
DX: F10.239 Alcohol dependence with withdrawal, unspecified (principal); R45.851 Suicidal ideations; F10.229 Alcohol dependence with intoxication, unspecified; F32.9 Major depressive disorder, single episode, unspecified; D72.819 Decreased white blood cell count, unspecified; X83.8XXA Intentional self-harm by other specified means, initial encounter; R23.3 Spontaneous ecchymoses; E80.6 Other disorders of bilirubin metabolism; F43.10 Post-traumatic stress disorder, unspecified; E78.5 Hyperlipidemia, unspecified; I10 Essential (primary) hypertension; Y90.9 Presence of alcohol in blood, level not specified; Y93.89 Activity, other specified; Z68.28 Body mass index [BMI] 28.0-28.9, adult; Y92.013 Bedroom of single-family (private) house as the place of occurrence of the external cause
CPT/HCPCS: G0378; G0480; J0500; J2060; J2270; J2405; J3010; Q0092